=== PATIENT | male | born 1950 | race Hispanic/Latino ===

== ENCOUNTER 2017-12-24 11:07 | Observation (INO) | payer MEDICARE ==
[~2017-12-24] VITALS: Ht 170.2 cm; Wt 70.1 kg
[~2017-12-24 11:07] MED LIST: ACET1TAB25 PO; AEC81 PO; AMLO1CAP11 PO; BIMA12.5OS OD; BRIM15OS OD; CANA300T PO; CILO100T PO; CLOP75TA32 PO; DOXY100C PO; DUTA1CPM PO; ESOM40CA PO; FURO20TA4 PO; HUM10VIA6 SQ; LINA1TAB PO; NAPR-1023 PO; PRAV20TA4 PO
[2017-12-24 11:47] LABS: BASOPHILS % (AUTO) 3.7 % (0.0-5.0); EOSINOPHILS % (AUTO) 4.2 % (0.0-8.0); HEMATOCRIT 32.2 % (42-54); LYMPHOCYTES % (AUTO) 16.9 % (21.0-51.0); MEAN CORPUSCULAR HEMOGLOBIN 30.3 pg (27.0-33.0); MEAN CORPUSCULAR HGB CONC 35.2 g/dL (32.0-36.0); MONOCYTES % (AUTO) 6.7 % (3.0-13.0); NEUTROPHILS % (AUTO) 68.5 % (40.0-77.0); PLATELET COUNT (AUTO) 232 K/uL (130-400); RED BLOOD CELL COUNT(AUTO) 3.75 MIL/uL (4.50-6.20)
[2017-12-24 12:05] LABS: CREATININE 2.3 mg/dL (0.5-1.5); POTASSIUM 4.1 mmol/L (3.5-5.1)
[2017-12-24 12:15] LABS: INR 0.96 (0.85-1.15); PARTIAL THROMBOPLASTIN TIME 25.9 SEC (26.3-35.5); PROTHROMBIN TIME 10.1 SEC (9.6-11.6)
[2017-12-24 12:21] LABS: ALBUMIN 2.7 g/dL (3.5-5.0); BILIRUBIN,TOTAL 0.3 mg/dL (0.2-1.0); CREATINE KINASE MB 0.7 ng/mL (0.5-3.6); TOTAL PROTEIN, SERUM 6.6 g/dL (6.0-8.3)
[2017-12-24] MEDS ORDERED: ASPIRIN 325 MG TABLET ONE (12:48)
[2017-12-24] MEDS ORDERED: NITROGLYCERIN 1GM/1 INCH PACKET TD ONE (12:48)
[2017-12-24] MEDS ORDERED: INSULIN HUMULIN R 100 UNIT/ML 3ML ONE (18:56)
[2017-12-24 20:00] VITALS: BP 172/81
[2017-12-24 23:59] LABS: CREATINE KINASE MB 0.5 ng/mL (0.5-3.6); CREATINE KINASE, TOTAL 101 U/L (21-232); MYOGLOBIN 84 ng/mL (10-92); TROPONIN I < 0.04 ng/mL (0.00-0.06)
[2017-12-25] VITALS: BP 158/82
[2017-12-25] MEDS ORDERED: GLUCAGON 1MG KIT 1 MG ML IM PRN (02:15)
[2017-12-25] MEDS ORDERED: ACETAMINOPHEN 325 MG TAB PO PRN (02:15)
[2017-12-25] MEDS ORDERED: DEXTROSE 50%-WATER 50 ML DISP.SYRIN IV PRN (02:15)
[2017-12-25] MEDS: ENOXAPARIN SODIUM 80 MG/0.8 ML SQ SCH ×2 (02:30→14:05)
[2017-12-25 04:00] VITALS: BP 160/82
[2017-12-25] MEDS: INSULIN R PO SS1 SQ SCH ×2 (06:27→12:21)
[2017-12-25] MEDS ORDERED: ACETAMINOPHEN-CODEINE 300/30MG TAB PO PRN (08:00)
[2017-12-25 08:40] VITALS: BP 177/97
[2017-12-25] MEDS ORDERED: CLOPIDOGREL BISULFATE 75 MG TAB PO SCH (09:00)
[2017-12-25] MEDS ORDERED: AMLODIPINE-BENAZEPRIL 5-10 MG PO SCH (09:00)
[2017-12-25] MEDS ORDERED: BRIMONIDINE TARTRATE 0.2% 5 ML BOTTLE OD SCH (09:00)
[2017-12-25] MEDS ORDERED: ASPIRIN 81 MG EC TAB PO SCH (09:00)
[2017-12-25] MEDS ORDERED: PANTOPRAZOLE SODIUM 40 MG TABLET.DR PO SCH (09:00)
[2017-12-25] MEDS ORDERED: CILOSTAZOL 100 MG TAB PO SCH (09:00)
[2017-12-25 11:00] VITALS: BP 136/76
[2017-12-25 15:44] VITALS: BP 162/85
[2017-12-25] MEDS ORDERED: LATANOPROST 2.5 ML DROPS OD SCH (21:00)
[2017-12-25] MEDS ORDERED: ATORVASTATIN CALCIUM 10 MG TABLET PO SCH (21:00)
== END 2017-12-25 16:15 | disposition home or self-care (01) ==
LOC: EDH 11:07 → EDHIP 14:00 → 3BH 20:04
PROVIDERS: ADMIT Internal Medicine Nephrology; ATTEND Internal Medicine Nephrology
DX: R07.89 Other chest pain (principal); I12.0 Hypertensive chronic kidney disease with stage 5 chronic kidney disease or end stage renal disease; N18.6 End stage renal disease; K21.9 Gastro-esophageal reflux disease without esophagitis; E11.51 Type 2 diabetes mellitus with diabetic peripheral angiopathy without gangrene; E11.22 Type 2 diabetes mellitus with diabetic chronic kidney disease; E78.5 Hyperlipidemia, unspecified; Z86.73 Personal history of transient ischemic attack (TIA), and cerebral infarction without residual deficits; Z99.2 Dependence on renal dialysis; Z83.3 Family history of diabetes mellitus; Z82.49 Family history of ischemic heart disease and other diseases of the circulatory system
CPT/HCPCS: 36415; 71046; 80053; 82550 ×2; 82553 ×2; 82948 ×4; 83874; 84484 ×3; 85025; 85610; 85730; 93005; 96372; 99285; G0378 ×26; J1650; J1815 ×2

== ENCOUNTER 2019-02-19 16:00 | Inpatient (IN) | payer MEDICARE ==
[~2019-02-19] VITALS: Ht 162.6 cm; Wt 75.1 kg
[~2019-02-19 16:00] MED LIST changes: -ACET1TAB25 PO; -AEC81 PO; -BRIM15OS OD; -CANA300T PO; -CILO100T PO; -DOXY100C PO; -DUTA1CPM PO; -ESOM40CA PO; -FURO20TA4 PO; -HUM10VIA6 SQ; -LINA1TAB PO; -NAPR-1023 PO; -PRAV20TA4 PO
[2019-02-19 17:09] LABS: BASOPHILS % (AUTO) 1.9 % (0.0-5.0); EOSINOPHILS % (AUTO) 1.7 % (0.0-8.0); HEMATOCRIT 33.1 % (42-54); LYMPHOCYTES % (AUTO) 15.5 % (21.0-51.0); MEAN CORPUSCULAR HEMOGLOBIN 30.3 pg (27.0-33.0); MEAN CORPUSCULAR HGB CONC 34.1 g/dL (32.0-36.0); MONOCYTES % (AUTO) 7.8 % (3.0-13.0); NEUTROPHILS % (AUTO) 73.1 % (40.0-77.0); PLATELET COUNT (AUTO) 200 K/uL (130-400); RED BLOOD CELL COUNT(AUTO) 3.71 MIL/uL (4.50-6.20); RED CELL DISTRIBUTION WIDTH 13.2 % (11.0-15.5); WHITE BLOOD COUNT (AUTO) 7.3 K/uL (4.8-10.8)
[2019-02-19 17:12] VITALS: BP 193/85
[2019-02-19 17:15] LABS: APPEARANCE,URINE Clear (CLEAR); BILIRUBIN,URINE Negative (NEGATIVE); COLOR,URINE Yellow (YELLOW); GLUCOSE, URINE (UA) TRACE mg/dL (NEGATIVE); KETONES,URINE Negative (NEGATIVE); LEUKOCYTE ESTERASE ,URINE Negative (NEGATIVE); NITRATE,URINE Negative (NEGATIVE); OCCULT BLOOD,URINE Trace (NEGATIVE); PROTEIN,URINE >=1000 mg/dL (NEGATIVE)
[2019-02-19 17:23] LABS: CREATININE 2.8 mg/dL (0.5-1.5); POTASSIUM 4.1 mmol/L (3.5-5.1)
[2019-02-19 17:24] LABS: WBC,URINE 0-1 /HPF (0-1)
[2019-02-19 17:25] LABS: BACTERIA,URINE Few /HPF (None Seen); SQUAMOUS EPITHELIAL CELL,UR None Seen /HPF (0-2)
[2019-02-19 17:26] LABS: INR 0.99 (0.85-1.15); PARTIAL THROMBOPLASTIN TIME 27.5 SEC (26.3-35.5); PROTHROMBIN TIME 10.4 SEC (9.6-11.6)
[2019-02-19] MEDS ORDERED: TAMS-1 PO (17:47)
[2019-02-19] MEDS ORDERED: PREG50 PO (17:47)
[2019-02-19] MEDS ORDERED: PRAV40TA3 PO (17:47)
[2019-02-19] MEDS ORDERED: HYDR-4154 PO (17:47)
[2019-02-19] MEDS ORDERED: OMEP40CA37 PO (17:47)
[2019-02-19] MEDS ORDERED: KETO5DRO39 OU (17:47)
[2019-02-19] MEDS ORDERED: FURO40TA5 PO (17:47)
[2019-02-19] MEDS ORDERED: NETA2.5D OP (17:47)
[2019-02-19] MEDS ORDERED: METR-172 PO (17:47)
[2019-02-19] MEDS ORDERED: INSU100C14 SQ ×2 (17:50)
--- NOTE | 2019-02-19 18:05 | NUR ---
LABS ALL ABNORMAL LABS REPORTED TO DR. MUNOZ, PER DR. Bret MUNOZ PATIENT TO GO TO HIS SCHEDULE HEMODILAYSIS FRIDAY AT 8 AM MAY HAVE FULL EARLY BREAKFAST , THEN AFTER HEMODIALYSIS COME TO HOSPITAL FOR SURGERY . PATIENT WAS CALLED AND INFORMED ABOUT THIS , HE VERBALIZED UNDERSTANDING.
[2019-02-22] VITALS (22 sets, daily range): BP systolic 98–144; BP diastolic 53–69
[2019-02-22] MEDS ORDERED: SODIUM CHLORIDE 0.9% 1000ML 1,000 ML IV ONE (12:13)
[2019-02-22] MEDS: CEFAZOLIN SODIUM 1 GM VIAL IVP SCH ×3 (13:00→21:41)
[2019-02-22] MEDS ORDERED: LIDOCAINE PF 2% 5ML ABBOJECT ONE (14:25)
[2019-02-22] MEDS ORDERED: DEXAMETHASONE SOD PHOSPHATE 10MG/ML 1ML VIAL ONE (14:25)
[2019-02-22] MEDS ORDERED: SUCCINYLCHOLINE 200MG/10ML SYR ONE (14:25)
[2019-02-22] MEDS ORDERED: GLYCOPYRROLATE 1 MG/5 ML SYRINGE ONE (14:25)
[2019-02-22] MEDS ORDERED: ONDANSETRON HCL 4 MG/2 ML VIAL ONE (14:25)
[2019-02-22] MEDS ORDERED: ROCURONIUM 10MG/1ML SYR 10 MG/ML ML ONE (14:26)
[2019-02-22] MEDS ORDERED: MIDAZOLAM HCL 1 MG/ML 2ML VIAL ONE (14:26)
[2019-02-22] MEDS ORDERED: NEOSTIGMINE 5MG/5ML SYR IV ONE (14:26)
[2019-02-22] MEDS ORDERED: PROPOFOL 10 MG/ML 20ML VIAL IV ONE (14:26)
[2019-02-22] MEDS ORDERED: ROPIVACAINE 0.5% 5MG/ML 30ML IJ ONE (14:27)
[2019-02-22] MEDS ORDERED: FENTANYL CITRATE PF 50 MCG/1 ML 2ML VIAL ONE (14:28)
[2019-02-22] MEDS ORDERED: CEFAZOLIN SODIUM 1 GM VIAL ONE ×2 (15:11→15:12)
[2019-02-22] MEDS ORDERED: EPHEDRINE SULFATE 50 MG/ML AMPULE ONE (15:32)
[2019-02-22] MEDS ORDERED: SODIUM CHLORIDE 0.9% 1000ML 1,000 ML IV SCH (17:10)
[2019-02-22] MEDS ORDERED: LIDOCAINE HCL-MPF 1% 2ML VIAL IVP PRN (17:15)
[2019-02-22] MEDS ORDERED: POTASSIUM CHLORIDE 20 MEQ ERTAB PO PRN (17:15)
[2019-02-22] MEDS ORDERED: DiphenhydrAMINE HCL 50 MG/ML VIAL IVP PRN (17:15)
[2019-02-22] MEDS ORDERED: FE FUMARATE/FA/MV, MIN COMB#15 1 TAB PO PRN (17:15)
[2019-02-22] MEDS ORDERED: POTASSIUM CHLORIDE 10% ELIXIR 20 MEQ/15 ML UDCUP PO PRN (17:15)
[2019-02-22] MEDS ORDERED: OXYCODONE HCL 5 MG TAB PO PRN (17:15)
[2019-02-22] MEDS ORDERED: ONDANSETRON HCL 4 MG/2 ML VIAL IVP PRN (17:15)
[2019-02-22] MEDS: ACETAMINOPHEN EXTRA STRENGTH 500 MG TABLET PO SCH (17:15)
[2019-02-22] MEDS ORDERED: TRAMADOL HCL 50 MG TABLET PO PRN (17:15)
[2019-02-22] MEDS ORDERED: TEMAZEPAM 15 MG CAPSULE PO PRN (17:15)
[2019-02-22] MEDS ORDERED: POTASSIUM CHLORIDE 20MEQ/100ML 100 ML IV PRN (17:15)
[2019-02-22] MEDS ORDERED: MEPERIDINE-PF 25 MG/ML SYG ONE (18:06)
--- NOTE | 2019-02-22 18:50 | NUR ---
POST SURGERY PATIENT RECEIVED FROM PACU VIA HOSPITAL BED. FAMILY IS PRESENT IN ROOM. ALL HAVE BEEN ORIENTED TO ROOM AND USE OF CALL LIGHT. DRESSING TO RIGHT SHOULDER IS DRY AND INTACT WITH HEMOVAC PRESENT. POST OP VITAL SIGNS HAVE BEEN INITIATED. BED IS IN LOWEST POSITION AND LOCKED WITH ALL PERSONAL BELONGINGS WITHIN REACH. WILL CONTINUE TO MONITOR.
[2019-02-22] MEDS: PREGABALIN 25 MG CAP PO SCH (20:42)
[2019-02-22] MEDS: INSULIN HUMULIN R 100 UNIT/ML 3ML SQ SCH (21:29)
[2019-02-22] MEDS ORDERED: FUROSEMIDE 40 MG TABLET PO SCH (22:00)
[2019-02-23] MEDS: ACETAMINOPHEN EXTRA STRENGTH 500 MG TABLET PO SCH ×3 (01:10→16:56)
[2019-02-23 03:05] VITALS: BP 107/72
[2019-02-23 04:25] LABS: HEMATOCRIT 28.1 % (42-54); MEAN CORPUSCULAR HEMOGLOBIN 31.2 pg (27.0-33.0); MEAN CORPUSCULAR HGB CONC 34.9 g/dL (32.0-36.0); MEAN CORPUSCULAR VOLUME 89.1 fL (79-99); PLATELET COUNT (AUTO) 170 K/uL (130-400); RED BLOOD CELL COUNT(AUTO) 3.16 MIL/uL (4.50-6.20); RED CELL DISTRIBUTION WIDTH 13.3 % (11.0-15.5); WHITE BLOOD COUNT (AUTO) 12.5 K/uL (4.8-10.8)
[2019-02-23 04:43] LABS: CREATININE 2.9 mg/dL (0.5-1.5); POTASSIUM 4.4 mmol/L (3.5-5.1)
[2019-02-23] MEDS: CEFAZOLIN SODIUM 1 GM VIAL IVP SCH (06:01)
[2019-02-23] MEDS: CALCIUM CARBONATE 500 MG TABLET PO PRN ×2 (06:01→09:21)
--- NOTE | 2019-02-23 06:20 | NUR ---
NEPHROLOGY DR. DEXTER IN TO SEE PATIENT. NEW ORDERS RECEIVED.
[2019-02-23] MEDS: INSULIN HUMULIN R 100 UNIT/ML 3ML SQ SCH ×4 (06:35→21:00)
[2019-02-23 08:05] VITALS: BP 124/66
[2019-02-23] MEDS ORDERED: ENOXAPARIN SODIUM 30 MG/0.3 ML SQ SCH (09:00)
[2019-02-23] MEDS: PREGABALIN 25 MG CAP PO SCH ×4 (09:00→20:29)
[2019-02-23] MEDS: KETOROLAC TROMETHAMINE OPTH 0.5% 5ML DROPS OU SCH ×2 (09:19→20:25)
[2019-02-23] MEDS: AMLODIPINE-BENAZEPRIL 5-10 MG PO SCH (09:20)
[2019-02-23] MEDS: PANTOPRAZOLE SODIUM 40 MG TABLET.DR PO SCH (09:20)
[2019-02-23] MEDS: ATORVASTATIN CALCIUM 10 MG TABLET PO SCH (09:20)
[2019-02-23] MEDS: HYDRALAZINE HCL 25 MG TABLET PO SCH ×3 (09:20→20:24)
[2019-02-23] MEDS: TAMSULOSIN HCL 0.4 MG CAP.ER.24H PO SCH (09:20)
[2019-02-23] MEDS: CLOPIDOGREL BISULFATE 75 MG TAB PO SCH (09:20)
[2019-02-23] MEDS: POLYETHYLENE GLYCOL 3350 17 GM POWD.PACK PO SCH (09:21)
[2019-02-23] MEDS: METRONIDAZOLE 500 MG TABLET PO SCH ×3 (09:21→20:24)
[2019-02-23 11:54] VITALS: BP 128/67
[2019-02-23 16:38] VITALS: BP 124/73
--- NOTE | 2019-02-23 17:00 | NUR ---
MARIO MEDRANO NOTES PT SEEN S/P SHOULDER SURGERY, SPOUSE AND PROVIDER AT BEDSIDE, AAOX3, MEGANEAKING, LIVES WITH SPOUSE WHO STATES WILL PROVIDE TRANSPORT HOME; PT HAS HD MWF, WILL BE DISCHARGED FRIDAY P HD; ORDERS FOR HH DISCUSSED; PT HAS CURRENT HOME HEALTH ; HOME HEALTH CHECK' VERIFIED SERVICES WITH AGENCY, ANAYA SIGNED, WILL FAX ALLL ORDERS IN AM Addendum: 02/25/19 at 0748 by MARY BURGESS RN CM Amended: Links added.
[2019-02-23] MEDS: OXYCODONE HCL 5 MG TAB PO PRN ×2 (17:51→22:01)
[2019-02-23 20:00] VITALS: BP 109/73
[2019-02-23] MEDS ORDERED: LATANOPROST 2.5 ML DROPS OD SCH (21:00)
[2019-02-23] MEDS ORDERED: RHOPRESSA OP SCH (21:00)
[2019-02-23 23:58] VITALS: BP 122/51
[2019-02-24] MEDS: ACETAMINOPHEN EXTRA STRENGTH 500 MG TABLET PO SCH ×2 (00:18→08:54)
[2019-02-24 04:06] VITALS: BP 131/52
[2019-02-24] MEDS: INSULIN HUMULIN R 100 UNIT/ML 3ML SQ SCH ×2 (06:20→11:30)
[2019-02-24] MEDS: OXYCODONE HCL 5 MG TAB PO PRN (06:37)
[2019-02-24 08:10] VITALS: BP 118/43
[2019-02-24] MEDS: KETOROLAC TROMETHAMINE OPTH 0.5% 5ML DROPS OU SCH (08:49)
[2019-02-24] MEDS: AMLODIPINE-BENAZEPRIL 5-10 MG PO SCH (08:51)
[2019-02-24] MEDS: HYDRALAZINE HCL 25 MG TABLET PO SCH ×2 (08:51→14:00)
[2019-02-24] MEDS: METRONIDAZOLE 500 MG TABLET PO SCH ×2 (08:53→14:24)
[2019-02-24] MEDS: ATORVASTATIN CALCIUM 10 MG TABLET PO SCH (08:53)
[2019-02-24] MEDS: PREGABALIN 25 MG CAP PO SCH ×2 (08:53→08:54)
[2019-02-24] MEDS: TAMSULOSIN HCL 0.4 MG CAP.ER.24H PO SCH (08:53)
[2019-02-24] MEDS: PANTOPRAZOLE SODIUM 40 MG TABLET.DR PO SCH (08:54)
[2019-02-24] MEDS: POLYETHYLENE GLYCOL 3350 17 GM POWD.PACK PO SCH (08:54)
[2019-02-24] MEDS: CLOPIDOGREL BISULFATE 75 MG TAB PO SCH (09:00)
[2019-02-24] MEDS ORDERED: NITROGLYCERIN 0.4 MG SL TAB SL PRN (09:15)
[2019-02-24] MEDS ORDERED: ACETAMINOPHEN 325 MG TAB PO PRN (09:15)
[2019-02-24] MEDS ORDERED: SODIUM CHLORIDE 0.9% 1000ML 1,000 ML IV PRN (09:15)
[2019-02-24] MEDS ORDERED: 0.9% SODIUM CHLORIDE 1000 ML IV BAG IV PRN (09:15)
[2019-02-24] MEDS ORDERED: HEPARIN SODIUM 5000UNIT/ML 1ML VIAL IJ PRN ×2 (09:15)
[2019-02-24] MEDS ORDERED: LIDOCAINE HCL-MPF 1% 2ML VIAL IJ PRN (09:15)
[2019-02-24] MEDS ORDERED: HYDR-4457 PO (11:07)
[2019-02-24 11:19] VITALS: BP 90/55
--- NOTE | 2019-02-24 15:20 | NUR ---
INSTRUCTIONS DISCHARGE INSTRUCTIONS GIVEN TO PATIENT USING TEACH BACK. FAMILY PRESENT AND ACKNOWLEDGES ALL INSTRUCTIONS. F/U APPOINTMENT MADE. NEW PRESCRIPTION PLACED IN PACKET ALONG WITH ALL PRINTED INFORMATION AND MD INSTRUCTIONS. DRESSING CHANGED AND HEMOVAC REMOVED PER MD INSTRUCTIONS.
[2019-02-25] MEDS ORDERED: BISACODYL 10 MG SUPP.RECT RC PRN (17:15)
== END 2019-02-24 17:04 | disposition home health service (06) | DRG 483 ==
LOC: DAHIP 02-22 11:45 → EDSTATUS 02-22 16:00 → 4AH 02-22 18:26
PROVIDERS: ADMIT Internal Medicine Nephrology; ATTEND Orthopaedic Surgery
PROC: 0RRJ00Z Replacement of Right Shoulder Joint with Reverse Ball and Socket Synthetic Substitute, Open Approach (ICD-10-PCS; principal; 2019-02-22 15:30)
PROC: 5A1D70Z Performance of Urinary Filtration, Intermittent, Less than 6 Hours Per Day (ICD-10-PCS; 2019-02-24)
DX: M75.101 Unspecified rotator cuff tear or rupture of right shoulder, not specified as traumatic (principal); N18.6 End stage renal disease; I12.0 Hypertensive chronic kidney disease with stage 5 chronic kidney disease or end stage renal disease; I69.354 Hemiplegia and hemiparesis following cerebral infarction affecting left non-dominant side; E11.22 Type 2 diabetes mellitus with diabetic chronic kidney disease; D63.1 Anemia in chronic kidney disease; E11.51 Type 2 diabetes mellitus with diabetic peripheral angiopathy without gangrene; F17.200 Nicotine dependence, unspecified, uncomplicated; K21.9 Gastro-esophageal reflux disease without esophagitis; M12.811 Other specific arthropathies, not elsewhere classified, right shoulder; G89.29 Other chronic pain; E66.9 Obesity, unspecified; Z68.28 Body mass index [BMI] 28.0-28.9, adult; Z99.2 Dependence on renal dialysis; Z82.49 Family history of ischemic heart disease and other diseases of the circulatory system; Z83.3 Family history of diabetes mellitus; Z95.828 Presence of other vascular implants and grafts
CPT/HCPCS: 36415; 73020; 80048; 81001; 82948; 84132; 85025; 85027; 85610; 85730; 90935; A4218; A4565; G0378; J0330; J0690; J1100; J1650; J1815; J2001; J2175; J2250; J2405; J2704; J2710; J2795; J3010; J3490; J7030

== ENCOUNTER 2020-06-28 21:44 | Observation (INO) | payer MEDICARE ==
[~2020-06-28] VITALS: Ht 170.2 cm; Wt 68.2 kg
[~2020-06-28 21:44] MED LIST changes: +AMLO-73 PO; -AMLO1CAP11 PO; +FURO40TA5 PO; +HYDR-4154 PO; +HYDR-4457 PO; +INSU100C14 SQ; +KETO5DRO39 OU; +METR-172 PO; +NETA2.5D OP; +OMEP40CA13 PO; +PRAV40TA3 PO; +PREG50 PO; +TAMS-1 PO
[2020-06-28] MEDS ORDERED: ACETAMINOPHEN 325 MG TAB ONE (22:09)
[2020-06-28 22:21] LABS: BASOPHILS % (AUTO) 1.4 % (0.0-5.0); EOSINOPHILS % (AUTO) 0.5 % (0.0-8.0); HEMATOCRIT 24.2 % (42-54); LYMPHOCYTES % (AUTO) 9.5 % (21.0-51.0); MEAN CORPUSCULAR HEMOGLOBIN 28.8 pg (27.0-33.0); MEAN CORPUSCULAR HGB CONC 31.8 g/dL (32.0-36.0); MEAN CORPUSCULAR VOLUME 90.6 fL (79-99); MONOCYTES % (AUTO) 5.7 % (3.0-13.0); NEUTROPHILS % (AUTO) 82.5 % (40.0-77.0); PLATELET COUNT (AUTO) 242 K/uL (130-400); RED BLOOD CELL COUNT(AUTO) 2.67 MIL/uL (4.50-6.20); RED CELL DISTRIBUTION WIDTH 14.6 % (11.0-15.5); WHITE BLOOD COUNT (AUTO) 7.7 K/uL (4.8-10.8)
[2020-06-28 22:31] LABS: CREATININE 2.3 mg/dL (0.5-1.5); POTASSIUM 3.3 mmol/L (3.5-5.1)
[2020-06-28 22:32] LABS: INR 1.04 (0.85-1.15); PARTIAL THROMBOPLASTIN TIME 31.1 SEC (26.3-35.5); PROTHROMBIN TIME 11.2 SEC (9.6-11.6)
[2020-06-28 22:36] LABS: ALBUMIN 2.8 g/dL (3.5-5.0); BILIRUBIN,TOTAL 0.5 mg/dL (0.2-1.0); TOTAL PROTEIN, SERUM 7.1 g/dL (6.0-8.3)
[2020-06-28 23:37] LABS: ERYTHROCYTE SEDIMENTATION RATE 73 MM/HR (0-20)
[2020-06-29] MEDS ORDERED: METHYLPREDNISOLONE SOD SUCC 125MG/2ML VIAL ONE (00:30)
[2020-06-29] MEDS ORDERED: DEXTROSE 50%-WATER 50 ML DISP.SYRIN IV PRN (04:30)
[2020-06-29] MEDS ORDERED: ACETAMINOPHEN 325 MG TAB PO PRN (04:30)
[2020-06-29] MEDS ORDERED: ONDANSETRON ODT 4 MG TAB PO PRN (04:30)
[2020-06-29] MEDS ORDERED: GLUCAGON 1MG KIT 1 MG ML IM PRN (04:30)
[2020-06-29 06:21] LABS: BASOPHILS % (AUTO) 1.2 % (0.0-5.0); EOSINOPHILS % (AUTO) 0.1 % (0.0-8.0); HEMATOCRIT 24.9 % (42-54); LYMPHOCYTES % (AUTO) 7.9 % (21.0-51.0); MEAN CORPUSCULAR HGB CONC 31.7 g/dL (32.0-36.0); MEAN CORPUSCULAR VOLUME 91.5 fL (79-99); MONOCYTES % (AUTO) 1.2 % (3.0-13.0); NEUTROPHILS % (AUTO) 89.3 % (40.0-77.0); PLATELET COUNT (AUTO) 236 K/uL (130-400); RED BLOOD CELL COUNT(AUTO) 2.72 MIL/uL (4.50-6.20); RED CELL DISTRIBUTION WIDTH 14.6 % (11.0-15.5); WHITE BLOOD COUNT (AUTO) 7.3 K/uL (4.8-10.8)
[2020-06-29 06:29] LABS: CREATININE 2.6 mg/dL (0.5-1.5); MAGNESIUM 1.8 mg/dL (1.80-2.40); POTASSIUM 3.4 mmol/L (3.5-5.1)
[2020-06-29] MEDS: INSULIN R PO SS1 SQ SCH ×2 (07:30→21:00)
[2020-06-29] MEDS ORDERED: INSULIN HUMULIN R 100 UNIT/ML 3ML ONE ×2 (08:30→12:44)
[2020-06-29 20:45] VITALS: BP 90/39
[2020-06-29 23:37] VITALS: BP 103/67
[2020-06-30] MEDS ORDERED: AEC81 PO (02:02)
[2020-06-30] MEDS ORDERED: PREG100C55 PO (02:02)
[2020-06-30] MEDS ORDERED: AMLO1CAP5 PO (02:09)
[2020-06-30] MEDS ORDERED: FURO40TA5 PO (02:09)
[2020-06-30] MEDS ORDERED: AMLO-73 PO (02:09)
[2020-06-30 04:38] VITALS: BP 105/93
[2020-06-30 04:46] LABS: HEMATOCRIT 25.5 % (42-54); MEAN CORPUSCULAR HEMOGLOBIN 28.5 pg (27.0-33.0); MEAN CORPUSCULAR HGB CONC 31.4 g/dL (32.0-36.0); MEAN CORPUSCULAR VOLUME 90.7 fL (79-99); RED BLOOD CELL COUNT(AUTO) 2.81 MIL/uL (4.50-6.20); RED CELL DISTRIBUTION WIDTH 14.3 % (11.0-15.5); WHITE BLOOD COUNT (AUTO) 8.5 K/uL (4.8-10.8)
[2020-06-30 05:23] LABS: CREATININE 3.3 mg/dL (0.5-1.5); POTASSIUM 3.1 mmol/L (3.5-5.1)
[2020-06-30] MEDS: INSULIN R PO SS1 SQ SCH ×2 (06:48→11:30)
[2020-06-30 08:00] VITALS: BP 131/77
[2020-06-30 12:00] VITALS: BP 123/78
[2020-06-30 16:00] VITALS: BP 121/69
--- NOTE | 2020-06-30 20:20 | NUR ---
PER MD ORDERS DISCHARGED PT HOME. REMOVED TELE AND PIV, TIP INTACT. DISCHARGE INSTRUCTIONS GIVEN TO PT AND SON (HORACIO) BY PHONE. INSTRUCTED PT TO GO TO [facility] FOR DIALYSIS ORDERED BY DR THOMAS TOMORROW AT 1:45 PM. BOTH STATED UNDERSTANDING. PT WAS ALSO INSTRUCTED TO FOLLOW UP WITH DR FLOYD OUT PT IN 1 WEEK AND TO CALL TO MAKE AN APPT. STATED UNDERSTANDING. PT FAMILY WAS WAITING DOWNSTAIRS, JARED FURNACE ROASTER WHEELED HIM DOWN.
== END 2020-06-30 20:35 | disposition home or self-care (01) ==
LOC: EDH 21:44 → UNDOADMOB 06-29 00:10 → EDHIP 06-29 00:10 → INTOOBSV 06-29 00:10 → OBSVTOIN 06-29 16:15 → UNDOADMOB 06-29 16:15 → INTOOBSV 06-29 16:15 → EDHIP 06-29 16:15 → 3DH 06-29 20:15
PROVIDERS: ADMIT Internal Medicine Infectious Disease; ATTEND Internal Medicine Infectious Disease
DX: R51 Headache (principal); E11.22 Type 2 diabetes mellitus with diabetic chronic kidney disease; I12.0 Hypertensive chronic kidney disease with stage 5 chronic kidney disease or end stage renal disease; E11.52 Type 2 diabetes mellitus with diabetic peripheral angiopathy with gangrene; N18.6 End stage renal disease; E87.6 Hypokalemia; D64.9 Anemia, unspecified; Z89.511 Acquired absence of right leg below knee; Z87.891 Personal history of nicotine dependence
CPT/HCPCS: 36415 ×3; 70450; 80048 ×2; 80053; 82948 ×8; 83735 ×2; 85025 ×2; 85027; 85610; 85651; 85730; 93005; 99285; G0378 ×25; J1815 ×2; J2930

== ENCOUNTER 2020-07-11 00:39 | Inpatient (IN) | payer MEDICARE ==
[~2020-07-11] VITALS: Ht 170.2 cm; Wt 78.5 kg
[2020-07-11] VITALS (23 sets, daily range): BP systolic 63–120; BP diastolic 33–69
[~2020-07-11 00:39] MED LIST changes: +AEC81 PO; -AMLO-73 PO; +AMLO1CAP5 PO; -BIMA12.5OS OD; -HYDR-4154 PO; -HYDR-4457 PO; -INSU100C14 SQ; -KETO5DRO39 OU; -METR-172 PO; -NETA2.5D OP; -OMEP40CA13 PO; -PRAV40TA3 PO; +PREG100C55 PO; -PREG50 PO
[2020-07-11] MEDS ORDERED: DEXTROSE 50%-WATER 50 ML DISP.SYRIN IV ONE (00:51)
[2020-07-11] MEDS ORDERED: GLUCAGON 1MG KIT 1 MG ML ONE (00:51)
[2020-07-11] MEDS ORDERED: DEXTROSE 5%-LACTATED RINGERS 1,000 ML IV ONE (01:04)
[2020-07-11 01:15] LABS: BASOPHILS % (AUTO) 0.8 % (0.0-5.0); EOSINOPHILS % (AUTO) 0.2 % (0.0-8.0); HEMATOCRIT 26.9 % (42-54); LYMPHOCYTES % (AUTO) 7.2 % (21.0-51.0); MEAN CORPUSCULAR HEMOGLOBIN 28.3 pg (27.0-33.0); MEAN CORPUSCULAR HGB CONC 31.2 g/dL (32.0-36.0); MEAN CORPUSCULAR VOLUME 90.6 fL (79-99); MONOCYTES % (AUTO) 4.1 % (3.0-13.0); NEUTROPHILS % (AUTO) 87.3 % (40.0-77.0); PLATELET COUNT (AUTO) 234 K/uL (130-400); RED BLOOD CELL COUNT(AUTO) 2.97 MIL/uL (4.50-6.20); RED CELL DISTRIBUTION WIDTH 14.8 % (11.0-15.5); WHITE BLOOD COUNT (AUTO) 11.4 K/uL (4.8-10.8)
[2020-07-11 01:31] LABS: ALANINE AMINOTRANSFERASE 54 U/L (12-78); ASPARTATE AMINOTRANSFERASE 39 U/L (10-37); BILIRUBIN,TOTAL 0.3 mg/dL (0.2-1.0); CARBON DIOXIDE 29 mmol/L (21-32); CHLORIDE 99 mmol/L (101-111); CREATINE KINASE, TOTAL 53 U/L (21-232); GLOMERULAR FILTR. RATE CALC 10 mL/min (>60); LIPASE 54 U/L (114-286); SODIUM SERUM 140 mmol/L (136-145); TOTAL PROTEIN, SERUM 7.1 g/dL (6.0-8.3); UREA NITROGEN, BLOOD 27 mg/dL (7-18)
[2020-07-11 01:36] LABS: GLUCOSE,RANDOM 47 mg/dL (70-105); POTASSIUM 2.4 mmol/L (3.5-5.1)
[2020-07-11 01:42] LABS: INR 1.18 (0.85-1.15); PARTIAL THROMBOPLASTIN TIME 30.1 SEC (26.3-35.5); PROTHROMBIN TIME 12.7 SEC (9.6-11.6)
[2020-07-11 01:46] LABS: ALCOHOL, BLOOD < 3 mg/dL (0-10)
[2020-07-11 01:50] LABS: ACETAMINOPHEN < 1 mcg/mL (10-29); SALICYLATE < 2.8 mg/dL (2.8-20.0)
[2020-07-11] MEDS ORDERED: POTASSIUM CHLORIDE 20MEQ/100ML 100 ML IV ONE (01:52)
[2020-07-11] MEDS ORDERED: LIDOCAINE HCL-MPF 1% 2ML VIAL ONE (01:53)
[2020-07-11 02:55] LABS: APPEARANCE,URINE Cloudy (CLEAR); BILIRUBIN,URINE Moderate (NEGATIVE); COLOR,URINE Dark Yellow (YELLOW); GLUCOSE, URINE (UA) Negative (NEGATIVE); KETONES,URINE Trace mg/dL (NEGATIVE); LEUKOCYTE ESTERASE ,URINE Trace (NEGATIVE); NITRATE,URINE Negative (NEGATIVE); OCCULT BLOOD,URINE Negative (NEGATIVE); PROTEIN,URINE 300 mg/dL (NEGATIVE)
[2020-07-11] MEDS ORDERED: ZOSYN 3.375GM+NS 50ML 50 ML IV ONE (02:59)
[2020-07-11 03:02] LABS: AMORPHOUS SEDIMENT,UR Moderate /LPF (None Seen); BACTERIA,URINE Rare /HPF (None Seen); RBC,URINE None Seen /HPF (0-1); SQUAMOUS EPITHELIAL CELL,UR Rare /HPF (0-2)
[2020-07-11 03:03] LABS: AMPHET/METH SCREEN,URINE NEGATIVE (NEGATIVE); BARBITURATE SCREEN, URINE NEGATIVE (NEGATIVE); BENZODIAZEPINES SCREEN,URINE NEGATIVE (NEGATIVE); CANNABINOID SCREEN,URINE NEGATIVE (NEGATIVE); COCAINE SCREEN,URINE NEGATIVE (NEGATIVE); OPIATE SCREEN,URINE NEGATIVE (NEGATIVE); PHENCYCLIDINE SCREEN,URINE NEGATIVE (NEGATIVE)
[2020-07-11] MEDS ORDERED: GLUCAGON 1MG KIT 1 MG ML IM PRN (05:15)
[2020-07-11] MEDS ORDERED: RENAL DOSE IV SCH (05:15)
[2020-07-11 05:40] LABS: HEMATOCRIT 27.2 % (42-54); MEAN CORPUSCULAR HGB CONC 31.6 g/dL (32.0-36.0); MEAN CORPUSCULAR VOLUME 91.6 fL (79-99); RED BLOOD CELL COUNT(AUTO) 2.97 MIL/uL (4.50-6.20); RED CELL DISTRIBUTION WIDTH 14.7 % (11.0-15.5); WHITE BLOOD COUNT (AUTO) 9.9 K/uL (4.8-10.8)
[2020-07-11] MEDS: METRONIDAZOLE 500MG/100ML BAG 100 ML IV SCH ×3 (05:52→20:40)
[2020-07-11 05:58] LABS: CREATININE 5.9 mg/dL (0.5-1.5); MAGNESIUM 2.2 mg/dL (1.80-2.40); POTASSIUM 3.5 mmol/L (3.5-5.1)
[2020-07-11] MEDS: ZOSYN 3.375GM+NS 50ML 50 ML IV SCH ×2 (07:01→17:16)
[2020-07-11] MEDS: FAMOTIDINE 20MG TAB 20 MG TAB PO SCH (07:49)
[2020-07-11] MEDS ORDERED: FUROSEMIDE 40 MG TABLET PO PRN (11:15)
[2020-07-11] MEDS ORDERED: [UNRECOGNIZED DRUG - CODE] IJ (11:33)
[2020-07-11] MEDS ORDERED: METR-172 PO (11:33)
--- NOTE | 2020-07-11 11:41 | NUR ---
VT PLAN PATIENT CONDITION GUARDED ND 3 87/54 HR 59. MARIO WILL CONTINUE FOLLOW. Addendum: 07/11/20 at 1142 by CHRIS WILLIAM RN CM Amended: Links added.
[2020-07-11] MEDS: DEXTROSE 50%-WATER 50 ML DISP.SYRIN IV PRN ×2 (13:17→22:17)
--- NOTE | 2020-07-11 15:09 | NUR ---
DR. HOLLINS WAS NOTIFIED ABOUT PATIENT REQUESTING SOMETHING FOR PAIN PRIOR TO REMOVING DELORES.
[2020-07-11] MEDS ORDERED: MORPHINE SULFATE 2 MG/ML 1ML SYG ONE (15:14)
[2020-07-11] MEDS ORDERED: MORPHINE SULFATE 2 MG/ML 1ML SYG IVP SCH (15:15)
[2020-07-11] MEDS: PREGABALIN 100 MG CAPSULE PO SCH (20:40)
[2020-07-12] VITALS (19 sets, daily range): BP systolic 67–135; BP diastolic 27–72
[2020-07-12 04:37] LABS: CREATININE 6.4 mg/dL (0.5-1.5); POTASSIUM 3.4 mmol/L (3.5-5.1)
--- NOTE | 2020-07-12 04:42 | NUR ---
[employer] Paged for patient blood pressure 62/36 Jordi LOPEZ advised nurse to administer ALBUMIN 25% 50cc and to start Levophed 4mg/250ml. Will continue to monitor patient.
[2020-07-12 05:01] LABS: BASOPHILS % (AUTO) 0.8 % (0.0-5.0); HEMATOCRIT 25.6 % (42-54); LYMPHOCYTES % (AUTO) 4.6 % (21.0-51.0); MEAN CORPUSCULAR HEMOGLOBIN 29.3 pg (27.0-33.0); MEAN CORPUSCULAR HGB CONC 32.4 g/dL (32.0-36.0); MEAN CORPUSCULAR VOLUME 90.5 fL (79-99); NEUTROPHILS % (AUTO) 89.2 % (40.0-77.0); PLATELET COUNT (AUTO) 202 K/uL (130-400); RED BLOOD CELL COUNT(AUTO) 2.83 MIL/uL (4.50-6.20); WHITE BLOOD COUNT (AUTO) 10.2 K/uL (4.8-10.8)
[2020-07-12] MEDS ORDERED: NOREPINEPHRINE 4MG/NS 250ML 250 ML IV ONE ×2 (05:03→13:26)
[2020-07-12] MEDS: ZOSYN 3.375GM+NS 50ML 50 ML IV SCH ×2 (05:51→19:19)
[2020-07-12] MEDS ORDERED: ALBUMIN (HUMAN) 25% 100 ML IV ONE (05:53)
[2020-07-12] MEDS: METRONIDAZOLE 500MG/100ML BAG 100 ML IV SCH ×3 (06:28→21:22)
[2020-07-12] MEDS: CLOPIDOGREL BISULFATE 75 MG TAB PO SCH (08:43)
[2020-07-12] MEDS: FAMOTIDINE 20MG TAB 20 MG TAB PO SCH (08:43)
[2020-07-12] MEDS: ASPIRIN 81 MG EC TAB PO SCH (08:43)
[2020-07-12] MEDS: MIDODRINE HCL 5 MG TABLET PO SCH ×3 (08:43→21:21)
[2020-07-12] MEDS: AMLODIPINE-BENAZEPRIL 5-10 MG PO SCH (08:47)
[2020-07-12] MEDS: TAMSULOSIN HCL 0.4 MG CAP.ER.24H PO SCH (08:48)
--- NOTE | 2020-07-12 10:43 | NUR ---
DC PLAN FROM LAST ADMISSION. PATIENT LIVES WITH SPOUSE. ILDA VERDUZCO, HOME HEALTH CHECK FOR HOME HEALTH. MARIO WILL CONTINUE TO FOLLOW. PLAN TO RETURN HOME. Addendum: 07/12/20 at 1045 by CHRIS WILLIAM RN CM Amended: Links added.
[2020-07-12] MEDS: PHARMACY COMMUNICATION MISC SCH ×2 (14:45→22:45)
[2020-07-12] MEDS: PREGABALIN 100 MG CAPSULE PO SCH (21:21)
[2020-07-12] MEDS: EPOETIN ALFA 10,000 UNIT/ML VIAL SQ SCH (21:22)
[2020-07-13] VITALS (25 sets, daily range): BP systolic 91–145; BP diastolic 32–79
[2020-07-13] MEDS ORDERED: NOREPINEPHRINE BITARTRATE 1 MG/1 ML ML IV ONE (01:35)
[2020-07-13] MEDS ORDERED: NOREPINEPHRINE 4MG/NS 250ML 250 ML IV ONE ×2 (01:38→02:23)
--- NOTE | 2020-07-13 03:19 | NUR ---
Due to continuous desat of oxygen while sleeping, RT communication entered to place patient on BiPAP.
[2020-07-13] MEDS: ZOSYN 3.375GM+NS 50ML 50 ML IV SCH ×2 (05:09→17:42)
[2020-07-13] MEDS: METRONIDAZOLE 500MG/100ML BAG 100 ML IV SCH ×3 (06:04→22:05)
[2020-07-13] MEDS: PHARMACY COMMUNICATION MISC SCH ×3 (06:05→21:14)
[2020-07-13] MEDS: CLOPIDOGREL BISULFATE 75 MG TAB PO SCH (08:26)
[2020-07-13] MEDS: ASPIRIN 81 MG EC TAB PO SCH (08:26)
[2020-07-13] MEDS: TAMSULOSIN HCL 0.4 MG CAP.ER.24H PO SCH (08:26)
[2020-07-13] MEDS: FAMOTIDINE 20MG TAB 20 MG TAB PO SCH (08:26)
[2020-07-13] MEDS: MIDODRINE HCL 5 MG TABLET PO SCH ×3 (08:28→22:05)
[2020-07-13] MEDS: AMLODIPINE-BENAZEPRIL 5-10 MG PO SCH (08:28)
[2020-07-13 10:13] LABS: HEMATOCRIT 27.9 % (42-54); MEAN CORPUSCULAR HEMOGLOBIN 28.8 pg (27.0-33.0); MEAN CORPUSCULAR HGB CONC 30.8 g/dL (32.0-36.0); MEAN CORPUSCULAR VOLUME 93.3 fL (79-99); PLATELET COUNT (AUTO) 236 K/uL (130-400); RED BLOOD CELL COUNT(AUTO) 2.99 MIL/uL (4.50-6.20); RED CELL DISTRIBUTION WIDTH 15.9 % (11.0-15.5); WHITE BLOOD COUNT (AUTO) 8.9 K/uL (4.8-10.8)
[2020-07-13 10:24] LABS: CREATININE 4.5 mg/dL (0.5-1.5); POTASSIUM 3.1 mmol/L (3.5-5.1)
[2020-07-13 10:29] LABS: BILIRUBIN,TOTAL 0.3 mg/dL (0.2-1.0); TOTAL PROTEIN, SERUM 6.7 g/dL (6.0-8.3)
[2020-07-13 13:12] LABS: HEPATITIS A ANTIBODY IGM Negative (Negative); HEPATITIS B CORE IGM Negative (Negative); HEPATITIS Bs ANTIGEN SCREEN P Negative (Negative)
[2020-07-13] MEDS: PREGABALIN 100 MG CAPSULE PO SCH (22:05)
[2020-07-14] VITALS (24 sets, daily range): BP systolic 100–168; BP diastolic 37–72
[2020-07-14 04:06] LABS: % IRON SATURATION 24.5 % (30-44)
[2020-07-14] MEDS ORDERED: NOREPINEPHRINE 4MG/NS 250ML 250 ML IV ONE (05:07)
[2020-07-14] MEDS: ZOSYN 3.375GM+NS 50ML 50 ML IV SCH ×2 (05:21→17:01)
[2020-07-14] MEDS: PHARMACY COMMUNICATION MISC SCH ×3 (05:21→22:09)
[2020-07-14] MEDS: METRONIDAZOLE 500MG/100ML BAG 100 ML IV SCH ×3 (05:21→22:09)
[2020-07-14] MEDS: FAMOTIDINE 20MG TAB 20 MG TAB PO SCH (07:49)
[2020-07-14] MEDS: CLOPIDOGREL BISULFATE 75 MG TAB PO SCH (07:49)
[2020-07-14] MEDS: AMLODIPINE-BENAZEPRIL 5-10 MG PO SCH (07:49)
[2020-07-14] MEDS: MIDODRINE HCL 5 MG TABLET PO SCH ×3 (07:49→22:09)
[2020-07-14] MEDS: ASPIRIN 81 MG EC TAB PO SCH (07:49)
[2020-07-14] MEDS: TAMSULOSIN HCL 0.4 MG CAP.ER.24H PO SCH (07:49)
[2020-07-14] MEDS ORDERED: NOREPINEPHRINE 4MG/NS 250ML 250 ML IV PRN (20:45)
[2020-07-14] MEDS: EPOETIN ALFA 10,000 UNIT/ML VIAL SQ SCH (21:04)
--- NOTE | 2020-07-14 21:07 | NUR ---
Dialysis Nurse completed treatment for patient. -2L removed. VSS. No sign of distress. Will continue to monitor.
[2020-07-14] MEDS: PREGABALIN 100 MG CAPSULE PO SCH (22:09)
[2020-07-15] VITALS (12 sets, daily range): BP systolic 101–179; BP diastolic 40–85
[2020-07-15] MEDS: METRONIDAZOLE 500MG/100ML BAG 100 ML IV SCH ×3 (05:42→20:21)
[2020-07-15] MEDS: PHARMACY COMMUNICATION MISC SCH ×3 (05:42→19:33)
[2020-07-15] MEDS: ZOSYN 3.375GM+NS 50ML 50 ML IV SCH ×2 (05:42→17:45)
[2020-07-15] MEDS: CLOPIDOGREL BISULFATE 75 MG TAB PO SCH (08:05)
[2020-07-15] MEDS: ASPIRIN 81 MG EC TAB PO SCH (08:05)
[2020-07-15] MEDS: FAMOTIDINE 20MG TAB 20 MG TAB PO SCH (08:05)
[2020-07-15] MEDS: TAMSULOSIN HCL 0.4 MG CAP.ER.24H PO SCH (08:05)
[2020-07-15] MEDS: MIDODRINE HCL 5 MG TABLET PO SCH ×3 (08:07→20:21)
[2020-07-15] MEDS: AMLODIPINE-BENAZEPRIL 5-10 MG PO SCH (09:00)
[2020-07-15 11:07] LABS: BASOPHILS % (AUTO) 0.8 % (0.0-5.0); EOSINOPHILS % (AUTO) 7.2 % (0.0-8.0); HEMATOCRIT 25.3 % (42-54); LYMPHOCYTES % (AUTO) 12.2 % (21.0-51.0); MEAN CORPUSCULAR HEMOGLOBIN 28.5 pg (27.0-33.0); MEAN CORPUSCULAR HGB CONC 30.4 g/dL (32.0-36.0); MEAN CORPUSCULAR VOLUME 93.7 fL (79-99); MONOCYTES % (AUTO) 7.2 % (3.0-13.0); NEUTROPHILS % (AUTO) 72.2 % (40.0-77.0); PLATELET COUNT (AUTO) 203 K/uL (130-400); RED CELL DISTRIBUTION WIDTH 15.6 % (11.0-15.5); WHITE BLOOD COUNT (AUTO) 7.5 K/uL (4.8-10.8)
[2020-07-15 11:41] LABS: CREATININE 4.1 mg/dL (0.5-1.5); MAGNESIUM 1.8 mg/dL (1.80-2.40); POTASSIUM 3.4 mmol/L (3.5-5.1)
--- NOTE | 2020-07-15 19:18 | NUR ---
Received pt to christine, alert and oriented. Vietnamese speaking. 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 Pt was given bed bath upon arrival to unit. O2 at 3L in place. Food tray given. Refused meal but consumed jello and tea without difficulty.
[2020-07-15] MEDS: PREGABALIN 100 MG CAPSULE PO SCH (20:20)
[2020-07-16] VITALS (7 sets, daily range): BP systolic 95–175; BP diastolic 49–93
--- NOTE | 2020-07-16 04:28 | NUR ---
received report from synagogue nurse, assumed care, shift assessment done, timed medication given , see emar, pt is aox4, had a bowel movement using a bedpan, pt stump is open to air, no drainage noted, 24 cc done. outcome criteria done, safety maintained, bed alarm on.
[2020-07-16] MEDS: ZOSYN 3.375GM+NS 50ML 50 ML IV SCH ×2 (05:45→18:11)
[2020-07-16] MEDS: METRONIDAZOLE 500MG/100ML BAG 100 ML IV SCH ×3 (05:46→21:47)
[2020-07-16] MEDS: PHARMACY COMMUNICATION MISC SCH ×3 (05:46→20:49)
[2020-07-16 07:13] LABS: % IRON SATURATION 41.7 % (30-44)
[2020-07-16] MEDS: ASPIRIN 81 MG EC TAB PO SCH (08:55)
[2020-07-16] MEDS: TAMSULOSIN HCL 0.4 MG CAP.ER.24H PO SCH (08:55)
[2020-07-16] MEDS: CLOPIDOGREL BISULFATE 75 MG TAB PO SCH (08:55)
[2020-07-16] MEDS: MIDODRINE HCL 5 MG TABLET PO SCH ×3 (08:56→20:01)
[2020-07-16] MEDS: FAMOTIDINE 20MG TAB 20 MG TAB PO SCH (08:56)
[2020-07-16] MEDS: AMLODIPINE-BENAZEPRIL 5-10 MG PO SCH (08:56)
[2020-07-16] MEDS ORDERED: PHARMACY COMMUNICATION MISC SCH ×2 (11:15)
[2020-07-16] MEDS: PREGABALIN 100 MG CAPSULE PO SCH (20:00)
[2020-07-16] MEDS: MORPHINE SULFATE 2 MG/ML 1ML SYG IVP PRN (21:47)
--- NOTE | 2020-07-17 02:40 | NUR ---
CONTACT AND SPOKE WITH HOSPITALIST, MARCELINO LYNCH EDITING COMPUTER PUBLISHER, PT PLACE LEAD 3X AND KEEPS REMOVING IT AND PT SAID I DONT WANT IT. PER EDITING COMPUTER PUBLISHER OK TO MARLEEN TEJADA AND CONFIRMED. Addendum: 07/17/20 at 0510 by Davi Herndon RN PLACED NEW LEADS ON PT, AND CHANGED NEW BATTERIES. PT BED ALARM ON. SAFETY MONITORED.
--- NOTE | 2020-07-17 04:11 | NUR ---
RECEIVED REPORT FROM VIDA AUGUSTINE NURSE, ASSUMED CARE, PT SHIFT ASSESSMENT DONE, LUNG RESENDIZ CLEAR AND DIMINISHED, TIMED MEDCICATION GIVEN SEE EMAR, 24 CC DONE, SAFETY MAINTAINED.
[2020-07-17 04:20] VITALS: BP 137/66
[2020-07-17] MEDS: METRONIDAZOLE 500MG/100ML BAG 100 ML IV SCH ×3 (04:54→21:05)
[2020-07-17] MEDS: ZOSYN 3.375GM+NS 50ML 50 ML IV SCH ×2 (04:59→17:45)
[2020-07-17 06:20] VITALS: BP 136/60
--- NOTE | 2020-07-17 06:51 | NUR ---
CONTACT AND SPOKE WITH [facility], GIVEN LAB RESULTS FOR IRON, TIBC AND SATURATION, SUYAPA WILL CHANGED THE TIMING ON PROCRIT ADMINISTRATION.
[2020-07-17] MEDS: AMLODIPINE-BENAZEPRIL 5-10 MG PO SCH (08:51)
[2020-07-17] MEDS: ASPIRIN 81 MG EC TAB PO SCH (08:52)
[2020-07-17] MEDS: MIDODRINE HCL 5 MG TABLET PO SCH ×3 (08:52→20:12)
[2020-07-17] MEDS: CLOPIDOGREL BISULFATE 75 MG TAB PO SCH (08:52)
[2020-07-17] MEDS: FAMOTIDINE 20MG TAB 20 MG TAB PO SCH (08:52)
[2020-07-17] MEDS: TAMSULOSIN HCL 0.4 MG CAP.ER.24H PO SCH (08:52)
[2020-07-17 11:00] VITALS: BP 148/85
[2020-07-17 11:22] LABS: BASOPHILS % (AUTO) 1.1 % (0.0-5.0); EOSINOPHILS % (AUTO) 5.7 % (0.0-8.0); HEMATOCRIT 28.9 % (42-54); LYMPHOCYTES % (AUTO) 7.7 % (21.0-51.0); MEAN CORPUSCULAR HEMOGLOBIN 28.6 pg (27.0-33.0); MEAN CORPUSCULAR HGB CONC 30.1 g/dL (32.0-36.0); MEAN CORPUSCULAR VOLUME 95.1 fL (79-99); MONOCYTES % (AUTO) 6.6 % (3.0-13.0); NEUTROPHILS % (AUTO) 78.4 % (40.0-77.0); PLATELET COUNT (AUTO) 242 K/uL (130-400); RED BLOOD CELL COUNT(AUTO) 3.04 MIL/uL (4.50-6.20); WHITE BLOOD COUNT (AUTO) 10.2 K/uL (4.8-10.8)
[2020-07-17 11:32] LABS: POTASSIUM 3.7 mmol/L (3.5-5.1)
[2020-07-17 16:00] VITALS: BP 126/58
--- NOTE | 2020-07-17 16:20 | NUR ---
NOTED PATIENT KNEELING ON FLOOR EDGE OF BED, PATIENT CONFUSED PULLING AT WIRES, NO INJURIES NOTED. PICC LINE TO RIGHT ARM APPEARS TO HAVE BEEN PULLED OUT A BIT, DRESSING INTACT. DR. STEEN MADE AWARE NEW ORDER XRAY TO CONFIRM PICC LINE PLACEMENT AND 1:1 SITTER. FAMILY MADE AWARE
[2020-07-17] MEDS: EPOETIN ALFA 10,000 UNIT/ML VIAL SQ SCH (20:06)
[2020-07-17] MEDS: PREGABALIN 100 MG CAPSULE PO SCH (20:06)
[2020-07-17 21:22] VITALS: BP 111/60
--- NOTE | 2020-07-17 21:26 | NUR ---
informed by rylie laborer beam house, pt negative of covid(-), waiting for transfer orders, order acknowledge, transfer to room 306 given handoff to [facility] receiving nurse, safety maintained.
[2020-07-17] MEDS: MORPHINE SULFATE 2 MG/ML 1ML SYG IVP PRN (22:09)
--- NOTE | 2020-07-17 23:48 | NUR ---
received by 3b nurse gilbert vasquez rn, informed receiving nurse given 2100 medication, called back ff up if i given heparin and lasix iv, informed her pt no iv, picc line just had a chest xray to confirm placement, called back and informed 3b nurse pt have change lasix iv to po and no heparin. for continuity patient care.
[2020-07-18] VITALS: BP 140/86
[2020-07-18 04:00] VITALS: BP 121/65
[2020-07-18] MEDS: METRONIDAZOLE 500MG/100ML BAG 100 ML IV SCH ×3 (05:09→20:55)
[2020-07-18] MEDS: ZOSYN 3.375GM+NS 50ML 50 ML IV SCH ×2 (05:09→17:45)
[2020-07-18] MEDS: MIDODRINE HCL 5 MG TABLET PO SCH ×3 (09:00→20:53)
--- NOTE | 2020-07-18 10:09 | NUR ---
called to assess picc placement. per radiology note, picc is 3 cm in atrium. noted picc has 9 cm exposed as charted by previous picc nurse. picc dressing removed and insertion site scrubbed thoroughly with chlorhexadine swab x 2. picc pulled back 5 cm and new biopatch, stat-taks and tegaderm dressing applied using aseptic technique. [place] and blue ports are functional with (+) blood return, flushed and clamped. advised dr. burr of non-functioning 3rd white port. Dr. burr ordered cath flow in white port.
[2020-07-18] MEDS: AMLODIPINE-BENAZEPRIL 5-10 MG PO SCH (10:35)
[2020-07-18] MEDS: ASPIRIN 81 MG EC TAB PO SCH (10:35)
[2020-07-18] MEDS: CLOPIDOGREL BISULFATE 75 MG TAB PO SCH (10:35)
[2020-07-18] MEDS: FAMOTIDINE 20MG TAB 20 MG TAB PO SCH (10:35)
[2020-07-18] MEDS: TAMSULOSIN HCL 0.4 MG CAP.ER.24H PO SCH (10:35)
[2020-07-18 11:00] VITALS: BP 128/64
[2020-07-18] MEDS ORDERED: PHARMACY COMMUNICATION MISC SCH (12:45)
[2020-07-18] MEDS ORDERED: ALTEPLASE 2 MG/VIAL IVCATH ONE (14:00)
[2020-07-18 16:00] VITALS: BP 111/55
[2020-07-18 20:00] VITALS: BP 127/64
[2020-07-18] MEDS: PREGABALIN 100 MG CAPSULE PO SCH (20:53)
--- NOTE | 2020-07-18 23:20 | NUR ---
BIGEMINAL FREQ PVC'S, FREQ COUPLETS AND WIDE QRS COMPLEX REPORTED BY TELE STAFF (Marcy) Called Dr. Story through phone and was told that he was calm, resting comfortably and no chest pain. MD ordered to place pt. on cardiology consult in AM and Lab chem: BMP and Magnesium in AM. Also, to continue monitor the patient.
[2020-07-19] VITALS (7 sets, daily range): BP systolic 92–127; BP diastolic 50–73
[2020-07-19 04:13] LABS: CREATININE 5.2 mg/dL (0.5-1.5); MAGNESIUM 2.1 mg/dL (1.80-2.40); POTASSIUM 3.2 mmol/L (3.5-5.1)
[2020-07-19] MEDS: METRONIDAZOLE 500MG/100ML BAG 100 ML IV SCH ×3 (04:54→22:46)
[2020-07-19] MEDS: ZOSYN 3.375GM+NS 50ML 50 ML IV SCH ×2 (04:54→18:52)
--- NOTE | 2020-07-19 05:24 | NUR ---
PT STILL HAVING A BIGEMINAL FREQ PVC'S, FREQ COUPLETS AND WIDE QRS COMPLEX REPORTED BY TELE STAFF. CONTINUED TO BE MONITORED. NO COMPLAINTS OF CHEST PAIN OR ANY DISCOMFORT. RESTING COMFORTABLY. NO APPARENT DISTRESS NOTED. WILL REPORT ACCORDINGLY TO DAY SHIFT RN.
--- NOTE | 2020-07-19 07:00 | NUR ---
DR. Duane MD rounded: Seen and visited pt with an order to have the Dialysis Nurse call her. wants pt's dialysis to be done in AM today and that pt needs to have 4 potassium bath. 0705: furniture painter Tamara made aware thru phone.
[2020-07-19] MEDS: FAMOTIDINE 20MG TAB 20 MG TAB PO SCH (10:47)
[2020-07-19] MEDS: TAMSULOSIN HCL 0.4 MG CAP.ER.24H PO SCH (10:48)
[2020-07-19] MEDS: MIDODRINE HCL 5 MG TABLET PO SCH ×3 (10:49→20:27)
[2020-07-19] MEDS: ASPIRIN 81 MG EC TAB PO SCH (13:13)
[2020-07-19] MEDS: CLOPIDOGREL BISULFATE 75 MG TAB PO SCH (13:14)
[2020-07-19] MEDS: MORPHINE SULFATE 2 MG/ML 1ML SYG IVP PRN ×2 (13:17→19:35)
--- NOTE | 2020-07-19 14:35 | NUR ---
1415 patient received BPCI Letter.
--- NOTE | 2020-07-19 15:05 | NUR ---
HAZARD WASTE HANDLER CONSULT: DR PANTOJA MADE AWARE.
--- NOTE | 2020-07-19 20:00 | NUR ---
ASSESSMENT NOTE PATIENT AWAKE, ALERT, OX2, PATIENT CALM, COOPERATIVE, RIGHT BKA STUMP D/I, TEACH PATIENT PLAN OF CARE AND EXPECTED OUTCOME, PATIENT VERBALIZES UNDERSTANDING VIA TEACH BACK, 1;1 AT BEDSIDE
[2020-07-19] MEDS: EPOETIN ALFA 10,000 UNIT/ML VIAL SQ SCH (20:27)
[2020-07-19] MEDS: PREGABALIN 25 MG CAP PO SCH (20:27)
[2020-07-20 03:58] LABS: HEMATOCRIT 28.6 % (42-54); MEAN CORPUSCULAR HEMOGLOBIN 28.2 pg (27.0-33.0); MEAN CORPUSCULAR HGB CONC 30.4 g/dL (32.0-36.0); MEAN CORPUSCULAR VOLUME 92.9 fL (79-99); RED BLOOD CELL COUNT(AUTO) 3.08 MIL/uL (4.50-6.20); RED CELL DISTRIBUTION WIDTH 16.1 % (11.0-15.5); WHITE BLOOD COUNT (AUTO) 5.3 K/uL (4.8-10.8)
[2020-07-20 04:00] VITALS: BP 108/82
[2020-07-20 04:21] LABS: CREATININE 4.5 mg/dL (0.5-1.5); POTASSIUM 3.4 mmol/L (3.5-5.1)
[2020-07-20] MEDS: ZOSYN 3.375GM+NS 50ML 50 ML IV SCH ×2 (04:59→17:45)
[2020-07-20] MEDS: METRONIDAZOLE 500MG/100ML BAG 100 ML IV SCH ×3 (05:07→22:15)
--- NOTE | 2020-07-20 06:00 | NUR ---
DRESSING CHANGE CHANGE DRESSING RIGHT BKA(STUMP), DRY ESCHAR NOTED ALONG INCISION, NO DRAINAGE NOTED, CLEANSED WITH BETADINE, APPLY 4X4 AND KERLIX ROLL
[2020-07-20 08:00] VITALS: BP 103/67
[2020-07-20] MEDS: FAMOTIDINE 20MG TAB 20 MG TAB PO SCH (09:56)
[2020-07-20] MEDS: TAMSULOSIN HCL 0.4 MG CAP.ER.24H PO SCH (09:57)
[2020-07-20] MEDS: MIDODRINE HCL 5 MG TABLET PO SCH ×3 (09:57→22:15)
[2020-07-20] MEDS: CLOPIDOGREL BISULFATE 75 MG TAB PO SCH (09:57)
[2020-07-20] MEDS: ASPIRIN 81 MG EC TAB PO SCH (09:57)
[2020-07-20 11:00] VITALS: BP 109/52
[2020-07-20 16:00] VITALS: BP 118/76
--- NOTE | 2020-07-20 17:20 | NUR ---
CM Note: Spouse called CM received call from spouse Tanya Matos. Initially agreeable for [facility] Ko[facility]. As per spouse cancel request, she prefers to take patient home instead, spouse uncertain about transferring patient. Spouse verbalized there is too many covid patients everywhere. Explained to spouse again purpose of transfer, the need for IV antibiotics, wound care, and PT. Spouse verbalized at this time she would like pt to remain in the hospital or go home. Informed spouse will not follow through w/GP referral. Will inform Dr Story of spouse decision. CM informed DR Story of spouse request. MD aware. Will keep pt and continue treatments in hospital for now.
[2020-07-20 20:32] VITALS: BP 104/72
[2020-07-20] MEDS: PREGABALIN 25 MG CAP PO SCH (22:15)
[2020-07-21 00:36] VITALS: BP 116/54
[2020-07-21 04:36] VITALS: BP 109/72
[2020-07-21 08:00] VITALS: BP 133/68
--- NOTE | 2020-07-21 08:44 | NUR ---
RDSCREEN - LOS X 10 Pt admitted with Hypokalemia, hypothermia. Pt is tolerating Renal Dialysis, 75gm CC diet order with no report of GI distress, good PO intake at 100%. Pt continues with hypokalemia. Elevated Cr. (4.5) and BUN (23), decreased GFR (14). Pt with BKA stump. Pt with AMS. Recommend to add Nepro Daily Moderate potassium foods okay d/t hypokalemia. Recommend continue current diet order RD to continue to monitor. Please notify as additional nutrition concerns arise. Thank you.
[2020-07-21 11:24] VITALS: BP 153/75
--- NOTE | 2020-07-21 13:57 | NUR ---
DISCHARGE PLANNING- HOME HEALTH PSOEK TO DR. STEEN- ADVISED HIM THAT NOTES SAY PATIENT ALREADY HAS A HOME HEALTH AND THAT CM WILL FOLLOW UP WITH THEM TO SEND ALL INFO. KELVIN TO DR. MARTHA ORELLANA OFFICE TO CONFIRM NAME OF HOME HEALTH HOME HEALTH CHECK, WILL SEND REFERRMORIAH SABILLONT TO HH AND TO MD PAINTINGS CONSERVATOR AWARE THAT REPOT FOR HH WILLNEED TO BE CALLED.
[2020-07-21] MEDS: MIDODRINE HCL 5 MG TABLET PO SCH ×2 (14:00→14:54)
--- NOTE | 2020-07-21 14:52 | NUR ---
DISCHARGE PLAN:::HOME WITH PREVIOUS HOME HEALTH. CALL TO SPOUSE- STATES USED HOME HEALTH CHACK IN THE PAST. CALL TO OFFICE OF DR. MARTHA VERA, STAFF STATES WITH NEED NEW RX. ADVISED STAFF THAT DR. Grullon WILL NOT BE THE ONE SIGNING FOR HOME HEALTH, DR. MARTHA VERA WILL. CALL TO FAMILY TO DISCUSS TRANSPORT- FAMILY STATES WILL WILL DESIGN QUALITY ENGINEER PATIENT. STATES THEY HAVE A HOSPITAL BED (OLD) AND A WHEELCHAIR (OLD) THEY STATES THAT PATIENT NEEDS A HOSP BED WITH A TRAPEZE AND A LIGHT WEIGHT MANUAL WHEEL CHAIR THAT PATIENT CAN SELF PROPEL., ANAYA FOR HOME HEALTH CHECK AND FOR RENAISSANCE ZAHRA ISAAC WILL SEND ALL FORM TO DR. PENDLETON OFFICE FOR HER TO SIGN AND FORWARD. VERBALIZE UNDERSTANDING. WILL SET H UP SAME AND LET IRMA RIVAS RN KNOW OF PLAN Addendum: 07/21/20 at 1503 by MARY BURGESS RN CM Amended: Links added.
[2020-07-21] MEDS: ASPIRIN 81 MG EC TAB PO SCH (14:54)
[2020-07-21] MEDS: FAMOTIDINE 20MG TAB 20 MG TAB PO SCH (14:54)
[2020-07-21] MEDS: TAMSULOSIN HCL 0.4 MG CAP.ER.24H PO SCH (14:54)
[2020-07-21] MEDS: CLOPIDOGREL BISULFATE 75 MG TAB PO SCH (14:54)
--- NOTE | 2020-07-21 18:00 | NUR ---
REFERRAL TO HOME HEALTH CHECK NEEDS PCP( DR VIERA. NOT A CURRENT PATIENT. ALL INFO FAXED TO COMPANY NO CALL BACK TO CONFIRM THAT PATIENT HAS BEEN ACCEPTED. PATIENT IS SAFE TO DC WITH BETADINE DRESSING - TO FOLLOW UP ON FRIDAY WITH HH AND MD OFFICE
--- NOTE | 2020-07-21 18:30 | NUR ---
NOTE DISCHARGE INSTRUCTIONS DISCUSSED WITH ON TELEPHONE AND AGAIN WHEN PATIENT TAKEN TO E.R. FOR HIM MANAGER. DRESSING TO RIGHT STUMP CHANGED PRIOR AND PICC LINE TO RIGHT ARM DC'D. NO RX FOR ABX AND RX FOR METOPROLOL, ATORVASTATIN AND PROTONIX CALLED INTO [facility].
[2020-07-21] MEDS ORDERED: ATORVASTATIN CALCIUM 40 MG TABLET PO SCH (21:00)
[2020-07-21] MEDS ORDERED: METOPROLOL TARTRATE 25 MG TAB PO SCH (21:00)
--- NOTE | 2020-07-22 14:39 | NUR ---
DISCHARGE MEDICATIONS DISCHARGE MEDICATIONS CALLED IN TO [facility] 1. METOPROLOL TARTRATE 25MG PO BID FOR 30 DAYS 2. PROTONIX 40MG PO DAILY FOR 30 DAYS 3. ATORVASTATIN 40MG PO AT BEDTIME 30 DAYS
== END 2020-07-21 19:25 | disposition home health service (06) | DRG 564 ==
LOC: EDH 00:39 → EDHIP 02:33 → DAHIP 03:17 → 4AH 07-15 17:00 → 3BH 07-17 21:38
PROVIDERS: ADMIT Internal Medicine Infectious Disease; ATTEND Internal Medicine Infectious Disease
PROC: 5A1D70Z Performance of Urinary Filtration, Intermittent, Less than 6 Hours Per Day (ICD-10-PCS; principal; 2020-07-12)
PROC: 5A09357 Assistance with Respiratory Ventilation, Less than 24 Consecutive Hours, Continuous Positive Airway Pressure (ICD-10-PCS; 2020-07-13)
PROC: 5A1D70Z Performance of Urinary Filtration, Intermittent, Less than 6 Hours Per Day (ICD-10-PCS; 2020-07-14)
PROC: 5A09357 Assistance with Respiratory Ventilation, Less than 24 Consecutive Hours, Continuous Positive Airway Pressure (ICD-10-PCS; 2020-07-14)
PROC: 5A1D70Z Performance of Urinary Filtration, Intermittent, Less than 6 Hours Per Day (ICD-10-PCS; 2020-07-17)
PROC: 02HV33Z Insertion of Infusion Device into Superior Vena Cava, Percutaneous Approach (ICD-10-PCS; 2020-07-18)
PROC: 5A1D70Z Performance of Urinary Filtration, Intermittent, Less than 6 Hours Per Day (ICD-10-PCS; 2020-07-19)
PROC: 5A1D70Z Performance of Urinary Filtration, Intermittent, Less than 6 Hours Per Day (ICD-10-PCS; 2020-07-21)
DX: T87.43 Infection of amputation stump, right lower extremity (principal); A41.9 Sepsis, unspecified organism; R65.21 Severe sepsis with septic shock; N18.6 End stage renal disease; G93.41 Metabolic encephalopathy; L03.115 Cellulitis of right lower limb; I12.0 Hypertensive chronic kidney disease with stage 5 chronic kidney disease or end stage renal disease; I69.354 Hemiplegia and hemiparesis following cerebral infarction affecting left non-dominant side; E87.6 Hypokalemia; E03.9 Hypothyroidism, unspecified; E11.22 Type 2 diabetes mellitus with diabetic chronic kidney disease; D63.1 Anemia in chronic kidney disease; E11.51 Type 2 diabetes mellitus with diabetic peripheral angiopathy without gangrene; E11.649 Type 2 diabetes mellitus with hypoglycemia without coma; E66.9 Obesity, unspecified; E78.5 Hyperlipidemia, unspecified; I34.0 Nonrheumatic mitral (valve) insufficiency; I45.10 Unspecified right bundle-branch block; Z20.828 Contact with and (suspected) exposure to other viral communicable diseases; Y83.5 Amputation of limb(s) as the cause of abnormal reaction of the patient, or of later complication, without mention of misadventure at the time of the procedure; Z68.27 Body mass index [BMI] 27.0-27.9, adult; Y92.89 Other specified places as the place of occurrence of the external cause; I25.2 Old myocardial infarction; Z99.2 Dependence on renal dialysis; Z74.01 Bed confinement status; Z83.3 Family history of diabetes mellitus; Z82.49 Family history of ischemic heart disease and other diseases of the circulatory system
CPT/HCPCS: 36415; 70450; 71045; 80048; 80053; 80074; 80305; 81001; 82140; 82550; 82947; 82948; 83540; 83550; 83605; 83690; 83735; 84484; 85025; 85027; 85610; 85730; 87040; 87324; 87426; 90935; 93005; 94660; 99291; A6250; C1751; C1894; G0378; G0481; J0885; J1610; J2543; J2997; J3480; J3490; J7070; P9046; U0003

== ENCOUNTER 2020-11-08 11:45 | Inpatient (IN) | payer MEDICARE ==
[~2020-11-08] VITALS: Ht 170.2 cm; Wt 59.9 kg
[~2020-11-08 11:45] MED LIST changes: -AMLO1CAP5 PO
[2020-11-08] MEDS ORDERED: ALBUTEROL INHALER 90MCG/INH IH ONE (13:08)
[2020-11-08] MEDS ORDERED: CEFTRIAXONE SODIUM 1 GM ONE (13:09)
[2020-11-08] MEDS ORDERED: DEXAMETHASONE SOD PHOSPHATE 10MG/ML 1ML VIAL ONE (13:09)
[2020-11-08 13:10] LABS: BASOPHILS % (AUTO) 0.3 % (0.0-5.0); HEMATOCRIT 39.9 % (42-54); LYMPHOCYTES % (AUTO) 20.6 % (21.0-51.0); MEAN CORPUSCULAR HGB CONC 31.3 g/dL (32.0-36.0); MEAN CORPUSCULAR VOLUME 83.1 fL (79-99); MONOCYTES % (AUTO) 5.2 % (3.0-13.0); NEUTROPHILS % (AUTO) 73.6 % (40.0-77.0); PLATELET COUNT (AUTO) 176 K/uL (130-400); WHITE BLOOD COUNT (AUTO) 3.5 K/uL (4.8-10.8)
[2020-11-08] MEDS ORDERED: AZITHROMYCIN 250 MG TABLET PO ONE (13:10)
[2020-11-08 13:14] LABS: CREATININE 4.7 mg/dL (0.5-1.5); INR 1.16 (0.85-1.15); POTASSIUM 3.8 mmol/L (3.5-5.1); PROTHROMBIN TIME 12.2 SEC (9.6-11.6)
[2020-11-08 13:15] LABS: PARTIAL THROMBOPLASTIN TIME 33.3 SEC (26.3-35.5)
[2020-11-08 13:25] LABS: ALBUMIN 2.7 g/dL (3.5-5.0); BILIRUBIN,TOTAL 0.4 mg/dL (0.2-1.0); TOTAL PROTEIN, SERUM 6.5 g/dL (6.0-8.3); TROPONIN I 0.16 ng/mL (0.00-0.06)
[2020-11-08] MEDS ORDERED: ASPIRIN 325 MG TABLET ONE (14:56)
[2020-11-08 15:59] LABS: ABG BASE EXCESS 1.6 mmol/L (-2.0-3.0); ABG HCO3 26.2 mmol/L (21.0-28.0); ABG OXYGEN SATURATION 93.3 % (95.0-99.0); ABG PCO2 41 mmHg (35-48)
[2020-11-08] MEDS ORDERED: CEFEPIME HCL 1 GM VIAL ONE (16:01)
[2020-11-08] MEDS ORDERED: DOXYCYCLINE HYCLATE 100 MG TABLET PO ONE (16:02)
[2020-11-08] MEDS ORDERED: ONDANSETRON HCL 4 MG/2 ML VIAL IVP PRN (16:45)
[2020-11-08] MEDS ORDERED: ACETAMINOPHEN 325 MG TAB PO PRN (16:45)
[2020-11-08] MEDS ORDERED: DEXAMETHASONE 4 MG TAB PO SCH (17:00)
[2020-11-08] MEDS ORDERED: CEFEPIME HCL 1 GM VIAL IVP SCH (17:00)
[2020-11-08] MEDS ORDERED: INSULIN R PO SS1 SQ SCH (21:00)
[2020-11-08] MEDS ORDERED: HEPARIN SODIUM 5000UNIT/ML 1ML VIAL SQ SCH (21:00)
[2020-11-08] MEDS ORDERED: DOXYCYCLINE HYCLATE 100 MG TABLET PO SCH (21:00)
[2020-11-08] MEDS ORDERED: HEPARIN SODIUM 5000UNIT/ML 1ML VIAL ONE (21:16)
[2020-11-08] MEDS ORDERED: INSULIN HUMULIN R 100 UNIT/ML 3ML ONE (21:17)
[2020-11-09] MEDS ORDERED: DOXYCYCLINE HYCLATE 100 MG TABLET PO ONE ×2 (05:17→08:11)
[2020-11-09 06:38] LABS: HEMATOCRIT 50.8 % (42-54); LYMPHOCYTES % (AUTO) 30.4 % (21.0-51.0); MEAN CORPUSCULAR HEMOGLOBIN 26.4 pg (27.0-33.0); MEAN CORPUSCULAR HGB CONC 31.9 g/dL (32.0-36.0); MEAN CORPUSCULAR VOLUME 82.7 fL (79-99); MONOCYTES % (AUTO) 7.2 % (3.0-13.0); NEUTROPHILS % (AUTO) 61.7 % (40.0-77.0); PLATELET COUNT (AUTO) 236 K/uL (130-400); RED BLOOD CELL COUNT(AUTO) 6.14 MIL/uL (4.50-6.20); RED CELL DISTRIBUTION WIDTH 15.3 % (11.0-15.5); WHITE BLOOD COUNT (AUTO) 1.4 K/uL (4.8-10.8)
[2020-11-09 06:47] LABS: CREATININE 4.7 mg/dL (0.5-1.5); POTASSIUM 3.8 mmol/L (3.5-5.1)
[2020-11-09] MEDS ORDERED: HEPARIN SODIUM 5000UNIT/ML 1ML VIAL ONE ×2 (08:11→20:38)
[2020-11-09] MEDS ORDERED: CEFEPIME HCL 1 GM VIAL ONE (17:04)
[2020-11-09] MEDS ORDERED: INSULIN HUMULIN R 100 UNIT/ML 3ML ONE ×2 (18:20→20:39)
[2020-11-09 20:19] LABS: APPEARANCE,URINE Clear (CLEAR); BILIRUBIN,URINE Negative (NEGATIVE); COLOR,URINE Dark Yellow (YELLOW); GLUCOSE, URINE (UA) TRACE mg/dL (NEGATIVE); KETONES,URINE Negative (NEGATIVE); LEUKOCYTE ESTERASE ,URINE Negative (NEGATIVE); NITRATE,URINE Negative (NEGATIVE); OCCULT BLOOD,URINE Negative (NEGATIVE); PROTEIN,URINE >=1000 mg/dL (NEGATIVE); UROBILINOGEN,URINE 0.2 mg/dL (0.2-1.0)
[2020-11-09 20:37] LABS: BACTERIA,URINE Few /HPF (None Seen); RBC,URINE 0-1 /HPF (0-1); SQUAMOUS EPITHELIAL CELL,UR Few /HPF (0-2); WBC,URINE 0-1 /HPF (0-1)
[2020-11-09 20:38] LABS: MUCUS,URINE Rare LPF (None Seen)
[2020-11-09] MEDS ORDERED: DOXYCYCLINE 100MG+NS 250ML 250 ML IV ONE (20:38)
[2020-11-10] MEDS ORDERED: DOXYCYCLINE HYCLATE 100 MG TABLET PO ONE (08:45)
[2020-11-10] MEDS ORDERED: HEPARIN SODIUM 5000UNIT/ML 1ML VIAL ONE (08:45)
[2020-11-10] MEDS ORDERED: ACETAMINOPHEN 325 MG TAB ONE (15:48)
[2020-11-10 16:46] VITALS: BP 123/70
== END 2020-11-10 18:46 | disposition left against medical advice (07) | DRG 177 ==
LOC: EDH 11:45 → EDHIP 13:49 → 2AH 11-10 16:17
PROVIDERS: ADMIT Internal Medicine Infectious Disease; ATTEND Internal Medicine Infectious Disease
DX: U07.1 COVID-19 (principal); J12.89 Other viral pneumonia; N18.6 End stage renal disease; J96.91 Respiratory failure, unspecified with hypoxia; I12.0 Hypertensive chronic kidney disease with stage 5 chronic kidney disease or end stage renal disease; Z53.29 Procedure and treatment not carried out because of patient's decision for other reasons; E11.22 Type 2 diabetes mellitus with diabetic chronic kidney disease; E11.51 Type 2 diabetes mellitus with diabetic peripheral angiopathy without gangrene; I25.10 Atherosclerotic heart disease of native coronary artery without angina pectoris; E03.9 Hypothyroidism, unspecified; R53.81 Other malaise; Z89.511 Acquired absence of right leg below knee; Z83.3 Family history of diabetes mellitus
CPT/HCPCS: 36415; 36600; 71045; 80048; 80053; 81001; 82550; 82803; 82948; 83605; 83874; 84145; 84484; 85025; 85610; 85730; 86900; 86901; 87040; 87077; 87088; 87186; 87426; 93005; 99291; G0378; J0692; J0696; J1100; J1644; J1815; J3490

== ENCOUNTER 2020-12-04 15:26 | Emergency (ER) | payer MEDICARE | END 2020-12-04 17:17 | disposition home or self-care (01) | LOC: EDH 15:26 | DX: S09.90XA Unspecified injury of head, initial encounter (principal); I12.0 Hypertensive chronic kidney disease with stage 5 chronic kidney disease or end stage renal disease; E11.22 Type 2 diabetes mellitus with diabetic chronic kidney disease; N18.6 End stage renal disease; E07.9 Disorder of thyroid, unspecified; Z99.2 Dependence on renal dialysis; W01.198A Fall on same level from slipping, tripping and stumbling with subsequent striking against other object, initial encounter; Y93.89 Activity, other specified; Y92.89 Other specified places as the place of occurrence of the external cause; Y99.8 Other external cause status | CPT/HCPCS: 70450; 72040 ==

== ENCOUNTER 2021-03-05 17:58 | Emergency (ER) | payer MEDICARE ==
[2021-03-05 18:46] LABS: BASOPHILS % (AUTO) 2.6 % (0.0-5.0); EOSINOPHILS % (AUTO) 1.4 % (0.0-8.0); HEMATOCRIT 39.7 % (42-54); LYMPHOCYTES % (AUTO) 13.3 % (21.0-51.0); MEAN CORPUSCULAR HEMOGLOBIN 30.4 pg (27.0-33.0); MEAN CORPUSCULAR HGB CONC 33.5 g/dL (32.0-36.0); MEAN CORPUSCULAR VOLUME 90.6 fL (79-99); MONOCYTES % (AUTO) 5.1 % (3.0-13.0); NEUTROPHILS % (AUTO) 77.3 % (40.0-77.0); PLATELET COUNT (AUTO) 184 K/uL (130-400); RED BLOOD CELL COUNT(AUTO) 4.38 MIL/uL (4.50-6.20); RED CELL DISTRIBUTION WIDTH 13.3 % (11.0-15.5); WHITE BLOOD COUNT (AUTO) 6.6 K/uL (4.8-10.8)
[2021-03-05] MEDS ORDERED: ACETAMINOPHEN EXTRA STRENGTH 500 MG TABLET ONE (18:48)
[2021-03-05] MEDS ORDERED: CYCLOBENZAPRINE HCL 10 MG TABLET ONE (18:48)
[2021-03-05 19:12] LABS: CREATININE 3.2 mg/dL (0.5-1.5); POTASSIUM 4.5 mmol/L (3.5-5.1)
[2021-03-05 19:17] LABS: ALBUMIN 3.8 g/dL (3.5-5.0); BILIRUBIN,TOTAL 0.3 mg/dL (0.2-1.0)
== END 2021-03-05 20:28 | disposition home or self-care (01) ==
LOC: EDH 17:58
DX: G44.209 Tension-type headache, unspecified, not intractable (principal); E78.00 Pure hypercholesterolemia, unspecified; I12.0 Hypertensive chronic kidney disease with stage 5 chronic kidney disease or end stage renal disease; E11.22 Type 2 diabetes mellitus with diabetic chronic kidney disease; N18.6 End stage renal disease; Z99.2 Dependence on renal dialysis; Z89.511 Acquired absence of right leg below knee
CPT/HCPCS: 36415; 70450; 80053; 85025; 96365; 99284; J2550

== ENCOUNTER 2021-07-16 16:37 | Observation (INO) | payer MEDICARE ==
[~2021-07-16] VITALS: Ht 170.2 cm; Wt 68.0 kg
[2021-07-16 17:08] VITALS: BP 107/45
[2021-07-16 17:51] LABS: BASOPHILS % (AUTO) 1.6 % (0.0-5.0); EOSINOPHILS % (AUTO) 1.6 % (0.0-8.0); HEMATOCRIT 35.6 % (42-54); LYMPHOCYTES % (AUTO) 19.3 % (21.0-51.0); MEAN CORPUSCULAR HEMOGLOBIN 29.9 pg (27.0-33.0); MEAN CORPUSCULAR HGB CONC 33.4 g/dL (32.0-36.0); MEAN CORPUSCULAR VOLUME 89.4 fL (79-99); MONOCYTES % (AUTO) 6.5 % (3.0-13.0); NEUTROPHILS % (AUTO) 70.7 % (40.0-77.0); PLATELET COUNT (AUTO) 159 K/uL (130-400); RED BLOOD CELL COUNT(AUTO) 3.98 MIL/uL (4.50-6.20); RED CELL DISTRIBUTION WIDTH 13.2 % (11.0-15.5); WHITE BLOOD COUNT (AUTO) 6.7 K/uL (4.8-10.8)
[2021-07-16 18:03] LABS: CREATININE 3.2 mg/dL (0.5-1.5); POTASSIUM 4.1 mmol/L (3.5-5.1)
[2021-07-16 18:04] LABS: INR 1.05 (0.85-1.15); PROTHROMBIN TIME 11.4 SEC (9.6-11.6)
[2021-07-16 18:05] LABS: PARTIAL THROMBOPLASTIN TIME 28.5 SEC (26.3-35.5)
[2021-07-16 18:08] LABS: ALBUMIN 3.5 g/dL (3.5-5.0); BILIRUBIN,TOTAL 0.3 mg/dL (0.2-1.0); TOTAL PROTEIN, SERUM 7.4 g/dL (6.0-8.3)
[2021-07-16 18:23] LABS: CRP QUANTITATIVE 15.7 mg/L (0.00-9.0); MAGNESIUM 2.2 mg/dL (1.80-2.40)
[2021-07-16 18:24] LABS: B-TYPE NATRIURETIC PEPTIDE 389 pg/mL (0-100)
[2021-07-16 19:01] VITALS: BP 125/61
[2021-07-16 20:15] VITALS: BP 133/65
[2021-07-16] MEDS: PHARMACY COMMUNICATION MISC SCH (23:30)
[2021-07-16] MEDS ORDERED: GLUCAGON 1MG KIT 1 MG ML IM PRN (23:30)
[2021-07-16] MEDS ORDERED: DEXTROSE 50%-WATER 50 ML DISP.SYRIN IV PRN (23:30)
[2021-07-17 03:01] LABS: TROPONIN I 0.05 ng/mL (0.00-0.06)
[2021-07-17] MEDS: PHARMACY COMMUNICATION MISC SCH ×2 (05:30→09:46)
[2021-07-17] MEDS: INSULIN R PO SS1 SQ SCH ×2 (07:30→11:30)
[2021-07-17 08:08] LABS: BASOPHILS % (AUTO) 1.8 % (0.0-5.0); EOSINOPHILS % (AUTO) 3.1 % (0.0-8.0); HEMATOCRIT 37.8 % (42-54); LYMPHOCYTES % (AUTO) 24.3 % (21.0-51.0); MEAN CORPUSCULAR HEMOGLOBIN 29.2 pg (27.0-33.0); MEAN CORPUSCULAR HGB CONC 33.1 g/dL (32.0-36.0); MEAN CORPUSCULAR VOLUME 88.3 fL (79-99); MONOCYTES % (AUTO) 8.1 % (3.0-13.0); NEUTROPHILS % (AUTO) 62.3 % (40.0-77.0); PLATELET COUNT (AUTO) 179 K/uL (130-400); RED BLOOD CELL COUNT(AUTO) 4.28 MIL/uL (4.50-6.20); RED CELL DISTRIBUTION WIDTH 13.2 % (11.0-15.5); WHITE BLOOD COUNT (AUTO) 7.4 K/uL (4.8-10.8)
[2021-07-17] MEDS: METOPROLOL TARTRATE 25 MG TAB PO SCH ×2 (08:22→11:30)
[2021-07-17 08:35] LABS: ALBUMIN 3.5 g/dL (3.5-5.0); BILIRUBIN,TOTAL 0.3 mg/dL (0.2-1.0); CREATININE 3.9 mg/dL (0.5-1.5); MAGNESIUM 2.3 mg/dL (1.80-2.40); POTASSIUM 3.9 mmol/L (3.5-5.1); TOTAL PROTEIN, SERUM 7.3 g/dL (6.0-8.3); TROPONIN I 0.06 ng/mL (0.00-0.06)
[2021-07-17] MEDS ORDERED: ASPIRIN 81MG CHEW TAB PO SCH (09:00)
[2021-07-17 10:40] VITALS: BP 95/49
== END 2021-07-17 14:07 | disposition left against medical advice (07) ==
LOC: EDH 16:37 → EDHIP 22:35
PROVIDERS: ADMIT Internal Medicine Infectious Disease; ATTEND Internal Medicine Infectious Disease
DX: I25.110 Atherosclerotic heart disease of native coronary artery with unstable angina pectoris (principal); Z20.822 Contact with and (suspected) exposure to COVID-19; I12.0 Hypertensive chronic kidney disease with stage 5 chronic kidney disease or end stage renal disease; N18.6 End stage renal disease; D63.1 Anemia in chronic kidney disease; I73.9 Peripheral vascular disease, unspecified; E11.22 Type 2 diabetes mellitus with diabetic chronic kidney disease; E03.9 Hypothyroidism, unspecified; E78.00 Pure hypercholesterolemia, unspecified; I25.2 Old myocardial infarction; I44.0 Atrioventricular block, first degree; I45.10 Unspecified right bundle-branch block; E66.9 Obesity, unspecified; Z89.511 Acquired absence of right leg below knee; Z91.19 Patient's noncompliance with other medical treatment and regimen; Z79.4 Long term (current) use of insulin; Z79.899 Other long term (current) drug therapy; Z98.890 Other specified postprocedural states; Z79.82 Long term (current) use of aspirin; Z68.23 Body mass index [BMI] 23.0-23.9, adult
CPT/HCPCS: 36415 ×2; 70450; 71045; 80053 ×2; 82550 ×4; 82948; 83735 ×2; 83874 ×2; 83880; 84484 ×4; 85025 ×2; 85610; 85730; 86140; 87635; 93005 ×3; 99285; C9803; G0378 ×15

== ENCOUNTER 2021-10-04 20:35 | Inpatient (IN) | payer MEDICARE ==
[~2021-10-04] VITALS: Ht 170.2 cm; Wt 71.7 kg
[2021-10-04 21:40] LABS: BASOPHILS % (AUTO) 1.2 % (0.0-5.0); EOSINOPHILS % (AUTO) 2.8 % (0.0-8.0); LYMPHOCYTES % (AUTO) 19.4 % (21.0-51.0); MEAN CORPUSCULAR HGB CONC 32.2 g/dL (32.0-36.0); MEAN CORPUSCULAR VOLUME 90.2 fL (79-99); MONOCYTES % (AUTO) 7.4 % (3.0-13.0); NEUTROPHILS % (AUTO) 68.6 % (40.0-77.0); PLATELET COUNT (AUTO) 168 K/uL (130-400); WHITE BLOOD COUNT (AUTO) 8.8 K/uL (4.8-10.8)
[2021-10-04 21:52] LABS: CREATININE 4.5 mg/dL (0.5-1.5); POTASSIUM 4.9 mmol/L (3.5-5.1)
[2021-10-04 21:56] LABS: ALBUMIN 3.7 g/dL (3.5-5.0); BILIRUBIN,TOTAL 0.4 mg/dL (0.2-1.0); TOTAL PROTEIN, SERUM 7.6 g/dL (6.0-8.3)
[2021-10-04] MEDS ORDERED: VANCOMYCIN 1G/250ML KIT 250 ML IV ONE (22:30)
[2021-10-04] MEDS ORDERED: ZOSYN 3.375GM +NS 50ML IV ONE (22:30)
[2021-10-04] MEDS ORDERED: VANCOMYCIN 1G VIAL IVPB ONE (22:30)
[2021-10-05] VITALS (17 sets, daily range): BP systolic 112–190; BP diastolic 49–89
[2021-10-05] MEDS ORDERED: DEXTROSE 50%-WATER 50 ML DISP.SYRIN IV PRN (01:00)
[2021-10-05] MEDS ORDERED: GLUCAGON 1MG KIT 1 MG ML IM PRN (01:00)
[2021-10-05] MEDS ORDERED: MORPHINE 2 MG SYG IVP PRN (01:00)
[2021-10-05] MEDS ORDERED: VANCOMYCIN PROTOCOL PER PHARMACY IV SCH (01:00)
[2021-10-05 06:43] LABS: BASOPHILS % (AUTO) 1.4 % (0.0-5.0); EOSINOPHILS % (AUTO) 4.2 % (0.0-8.0); HEMATOCRIT 36.8 % (42-54); LYMPHOCYTES % (AUTO) 14.3 % (21.0-51.0); MEAN CORPUSCULAR HEMOGLOBIN 29.5 pg (27.0-33.0); MEAN CORPUSCULAR HGB CONC 32.6 g/dL (32.0-36.0); MEAN CORPUSCULAR VOLUME 90.4 fL (79-99); MONOCYTES % (AUTO) 9.1 % (3.0-13.0); NEUTROPHILS % (AUTO) 70.7 % (40.0-77.0); PLATELET COUNT (AUTO) 166 K/uL (130-400); RED BLOOD CELL COUNT(AUTO) 4.07 MIL/uL (4.50-6.20); WHITE BLOOD COUNT (AUTO) 6.2 K/uL (4.8-10.8)
[2021-10-05 06:49] LABS: CREATININE 4.7 mg/dL (0.5-1.5); POTASSIUM 4.4 mmol/L (3.5-5.1)
[2021-10-05 06:53] LABS: ALBUMIN 3.1 g/dL (3.5-5.0); BILIRUBIN,TOTAL 0.4 mg/dL (0.2-1.0); MAGNESIUM 2.3 mg/dL (1.80-2.40); PHOSPHORUS 6.7 mg/dL (2.5-4.9); TOTAL PROTEIN, SERUM 7.1 g/dL (6.0-8.3)
[2021-10-05 06:55] LABS: HEMOGLOBIN A1C 7.2 % (4.0-6.0)
[2021-10-05] MEDS: INSULIN R PO SS1 SQ SCH ×4 (07:30→20:57)
[2021-10-05] MEDS: ZOSYN 3.375GM+NS 50ML 50 ML IV SCH ×2 (10:16→21:00)
[2021-10-05] MEDS: ACETAMINOPHEN 325 MG TAB PO PRN (21:22)
[2021-10-05] MEDS: ONDANSETRON 4MG INJ IVP PRN (22:25)
[2021-10-06] MEDS ORDERED: TRAMADOL HCL 50 MG TABLET PO PRN
[2021-10-06 04:00] VITALS: BP 146/74
[2021-10-06] MEDS: INSULIN R PO SS1 SQ SCH ×4 (06:14→21:00)
[2021-10-06 08:00] VITALS: BP 163/98
[2021-10-06] MEDS: ZOSYN 3.375GM+NS 50ML 50 ML IV SCH ×2 (09:18→21:34)
[2021-10-06 11:47] VITALS: BP 131/73
[2021-10-06 16:52] VITALS: BP 141/74
[2021-10-06] MEDS ORDERED: COMB5OS OD (18:58)
[2021-10-06] MEDS ORDERED: METO25TA6 PO (18:58)
[2021-10-06] MEDS ORDERED: LATA7.5D OP (18:58)
[2021-10-06] MEDS ORDERED: FOLI1TAB61 PO (18:58)
[2021-10-06] MEDS ORDERED: PREG50CA63 PO (18:58)
[2021-10-06 20:00] VITALS: BP 137/71
[2021-10-06] MEDS: METOPROLOL TARTRATE 25 MG TAB PO SCH (21:34)
[2021-10-06] MEDS: BRIMONIDINE TARTRATE 0.2% 5 ML BOTTLE OD SCH (21:35)
[2021-10-06] MEDS: LATANOPROST 2.5 ML DROPS OP SCH (21:35)
[2021-10-06] MEDS: TIMOLOL MALEATE 0.5% 5 ML BOTTLE OD SCH (21:35)
[2021-10-07] VITALS (7 sets, daily range): BP systolic 123–154; BP diastolic 51–70
[2021-10-07] MEDS: INSULIN R PO SS1 SQ SCH ×4 (06:41→19:44)
[2021-10-07] MEDS ORDERED: 0.9% NACL 250ML 250 ML IV SCH ×2 (08:00→12:00)
[2021-10-07] MEDS: TIMOLOL MALEATE 0.5% 5 ML BOTTLE OD SCH ×2 (09:00→19:42)
[2021-10-07] MEDS: BRIMONIDINE TARTRATE 0.2% 5 ML BOTTLE OD SCH ×2 (09:00→19:41)
[2021-10-07] MEDS ORDERED: VANCOMYCIN 750MG VIAL IVPB SCH (09:00)
[2021-10-07] MEDS: LATANOPROST 2.5 ML DROPS OP SCH ×2 (09:00→19:44)
[2021-10-07] MEDS: ZOSYN 3.375GM+NS 50ML 50 ML IV SCH ×3 (09:41→20:08)
[2021-10-07 10:09] LABS: HEPATITIS Bs ANTIGEN SCREEN P Negative (Negative)
[2021-10-07] MEDS: Vitamin B Complex/Vit C/Folic Acid PO SCH (10:18)
[2021-10-07] MEDS: PREGABALIN 25 MG CAP PO SCH (10:18)
[2021-10-07] MEDS: METOPROLOL TARTRATE 25 MG TAB PO SCH ×2 (10:18→19:36)
[2021-10-07] MEDS ORDERED: VANCOMYCIN 1G/250ML KIT 250 ML IV SCH (14:00)
[2021-10-07] MEDS ORDERED: NYSTATIN 30 GM CREAM.GM. TP SCH (16:00)
[2021-10-08] VITALS (20 sets, daily range): BP systolic 128–172; BP diastolic 55–80
[2021-10-08] MEDS: INSULIN R PO SS1 SQ SCH ×4 (06:37→20:59)
[2021-10-08] MEDS ORDERED: DiphenhydrAMINE HCL 50 MG/ML VIAL IVP PRN (09:30)
[2021-10-08] MEDS: LATANOPROST 2.5 ML DROPS OP SCH ×2 (10:13→21:00)
[2021-10-08] MEDS: BRIMONIDINE TARTRATE 0.2% 5 ML BOTTLE OD SCH ×2 (10:13→21:00)
[2021-10-08] MEDS: TIMOLOL MALEATE 0.5% 5 ML BOTTLE OD SCH ×2 (10:13→21:00)
[2021-10-08] MEDS: ZOSYN 3.375GM+NS 50ML 50 ML IV SCH (10:14)
[2021-10-08] MEDS: PREGABALIN 25 MG CAP PO SCH (10:15)
[2021-10-08] MEDS: METOPROLOL TARTRATE 25 MG TAB PO SCH ×2 (10:15→21:00)
[2021-10-08] MEDS: Vitamin B Complex/Vit C/Folic Acid PO SCH (10:15)
[2021-10-08 12:28] LABS: CREATININE 5.4 mg/dL (0.5-1.5); POTASSIUM 4.1 mmol/L (3.5-5.1)
[2021-10-08] MEDS: VANCOMYCIN 1G/250ML KIT 250 ML IV SCH (22:17)
[2021-10-08] MEDS: 0.9% NACL 250ML 250 ML IV SCH (22:17)
[2021-10-09] VITALS (25 sets, daily range): BP systolic 108–174; BP diastolic 55–96
[2021-10-09] MEDS: ZOSYN 3.375GM+NS 50ML 50 ML IV SCH ×3 (00:12→21:25)
[2021-10-09 05:31] LABS: HEMATOCRIT 36.7 % (42-54); MEAN CORPUSCULAR HEMOGLOBIN 29.3 pg (27.0-33.0); MEAN CORPUSCULAR VOLUME 88.9 fL (79-99); RED BLOOD CELL COUNT(AUTO) 4.13 MIL/uL (4.50-6.20); RED CELL DISTRIBUTION WIDTH 12.9 % (11.0-15.5); WHITE BLOOD COUNT (AUTO) 6.3 K/uL (4.8-10.8)
[2021-10-09 05:43] LABS: INR 1.07 (0.85-1.15); PROTHROMBIN TIME 11.6 SEC (9.6-11.6)
[2021-10-09 05:44] LABS: CREATININE 3.4 mg/dL (0.5-1.5); PARTIAL THROMBOPLASTIN TIME 30.9 SEC (26.3-35.5); POTASSIUM 3.7 mmol/L (3.5-5.1)
[2021-10-09] MEDS: INSULIN R PO SS1 SQ SCH ×4 (06:26→21:00)
[2021-10-09] MEDS ORDERED: HEPARIN 10,000 UNIT/10ML (1,000 UNIT/ML) VIAL ONE (07:07)
[2021-10-09] MEDS ORDERED: IODIXANOL 320 MG/ML 100 ML VIAL ONE ×2 (07:08→08:37)
[2021-10-09] MEDS ORDERED: LIDOCAINE HCL 400MG/20ML VIAL ONE (07:08)
[2021-10-09] MEDS ORDERED: NITROGLYCERIN 50MG VIAL IV ONE (07:08)
[2021-10-09] MEDS ORDERED: MIDAZOLAM HCL 1 MG/ML 2ML VIAL ONE ×3 (08:00→15:23)
[2021-10-09] MEDS ORDERED: FENTANYL CITRATE PF 50 MCG/1 ML 2ML VIAL ONE ×2 (08:01→13:54)
[2021-10-09] MEDS ORDERED: TICAGRELOR 90 MG TABLET ONE (08:54)
[2021-10-09] MEDS ORDERED: ASPIRIN 325MG EC TAB PO ONE (08:55)
[2021-10-09] MEDS: PREGABALIN 25 MG CAP PO SCH (09:00)
[2021-10-09] MEDS: METOPROLOL TARTRATE 25 MG TAB PO SCH ×2 (09:00→21:25)
[2021-10-09] MEDS: BRIMONIDINE TARTRATE 0.2% 5 ML BOTTLE OD SCH ×2 (09:00→21:29)
[2021-10-09] MEDS: LATANOPROST 2.5 ML DROPS OP SCH ×2 (09:00→21:28)
[2021-10-09] MEDS: Vitamin B Complex/Vit C/Folic Acid PO SCH (09:00)
[2021-10-09] MEDS: TIMOLOL MALEATE 0.5% 5 ML BOTTLE OD SCH ×2 (09:00→21:29)
[2021-10-09] MEDS ORDERED: PROPOFOL 10 MG/ML 20ML VIAL IV ONE (13:53)
[2021-10-09] MEDS ORDERED: BUPIVACAINE/PF 0.25% 30ML VIAL IJ ONE (14:24)
[2021-10-09] MEDS ORDERED: LIDOCAINE HCL 1% 20 ML VIAL ONE (14:24)
[2021-10-09] MEDS ORDERED: BUPIVACAINE/PF 0.5% 30ML VIAL ONE (14:27)
[2021-10-09] MEDS ORDERED: MEPERIDINE-PF 25 MG/ML SYG ONE (15:23)
[2021-10-09] MEDS ORDERED: TICAGRELOR 90 MG TABLET PO SCH (21:00)
[2021-10-09] MEDS: ACETAMINOPHEN 325 MG TAB PO PRN (21:27)
[2021-10-09] MEDS: ATORVASTATIN 40 MG TABLET PO SCH (21:27)
[2021-10-10] VITALS (21 sets, daily range): BP systolic 108–176; BP diastolic 49–78
[2021-10-10 05:10] LABS: HEMATOCRIT 33.3 % (42-54); MEAN CORPUSCULAR HEMOGLOBIN 29.1 pg (27.0-33.0); MEAN CORPUSCULAR VOLUME 88.1 fL (79-99); RED BLOOD CELL COUNT(AUTO) 3.78 MIL/uL (4.50-6.20); RED CELL DISTRIBUTION WIDTH 13.1 % (11.0-15.5); WHITE BLOOD COUNT (AUTO) 8.4 K/uL (4.8-10.8)
[2021-10-10 05:18] LABS: CREATININE 4.5 mg/dL (0.5-1.5); POTASSIUM 3.9 mmol/L (3.5-5.1)
[2021-10-10] MEDS: ACETAMINOPHEN 325 MG TAB PO PRN ×2 (05:23→21:11)
[2021-10-10] MEDS: INSULIN R PO SS1 SQ SCH ×4 (06:38→21:00)
[2021-10-10] MEDS: METOPROLOL TARTRATE 25 MG TAB PO SCH ×2 (09:00→21:04)
[2021-10-10] MEDS: Vitamin B Complex/Vit C/Folic Acid PO SCH (10:02)
[2021-10-10] MEDS: ASPIRIN 81MG CHEW TAB PO SCH (10:02)
[2021-10-10] MEDS: CLOPIDOGREL 75MG TAB PO SCH (10:03)
[2021-10-10] MEDS: PREGABALIN 25 MG CAP PO SCH (10:03)
[2021-10-10] MEDS: ZOSYN 3.375GM+NS 50ML 50 ML IV SCH ×2 (10:04→21:04)
[2021-10-10] MEDS: LATANOPROST 2.5 ML DROPS OP SCH ×2 (10:08→21:17)
[2021-10-10] MEDS: TIMOLOL MALEATE 0.5% 5 ML BOTTLE OD SCH ×2 (10:09→21:17)
[2021-10-10] MEDS: BRIMONIDINE TARTRATE 0.2% 5 ML BOTTLE OD SCH ×2 (10:09→21:16)
[2021-10-10] MEDS: VANCOMYCIN 1G/250ML KIT 250 ML IV SCH (18:25)
[2021-10-10] MEDS: 0.9% NACL 250ML 250 ML IV SCH (18:25)
[2021-10-10] MEDS: ATORVASTATIN 40 MG TABLET PO SCH (21:04)
[2021-10-10] MEDS: ONDANSETRON 4MG INJ IVP PRN (21:09)
[2021-10-11 00:09] VITALS: BP 120/66
[2021-10-11 04:42] VITALS: BP 103/48
[2021-10-11] MEDS: INSULIN R PO SS1 SQ SCH ×2 (06:14→11:30)
[2021-10-11 08:00] VITALS: BP 104/50
[2021-10-11] MEDS: ZOSYN 3.375GM+NS 50ML 50 ML IV SCH (08:52)
[2021-10-11] MEDS: PREGABALIN 25 MG CAP PO SCH (08:54)
[2021-10-11] MEDS: CLOPIDOGREL 75MG TAB PO SCH (08:54)
[2021-10-11] MEDS: Vitamin B Complex/Vit C/Folic Acid PO SCH (08:54)
[2021-10-11] MEDS: ASPIRIN 81MG CHEW TAB PO SCH (08:54)
[2021-10-11] MEDS: BRIMONIDINE TARTRATE 0.2% 5 ML BOTTLE OD SCH (08:55)
[2021-10-11] MEDS: LATANOPROST 2.5 ML DROPS OP SCH (08:55)
[2021-10-11] MEDS: TIMOLOL MALEATE 0.5% 5 ML BOTTLE OD SCH (08:55)
[2021-10-11 12:14] VITALS: BP 111/50
[2021-10-12] MEDS ORDERED: VANCOMYCIN 1G/250ML KIT 250 ML IV SCH (15:00)
== END 2021-10-11 15:20 | disposition home or self-care (01) | DRG 239 ==
LOC: EDH 20:35 → EDHIP 22:35 → 3DH 10-05 21:33
PROVIDERS: ADMIT Internal Medicine Infectious Disease; ATTEND Internal Medicine Infectious Disease
PROC: 5A1D70Z Performance of Urinary Filtration, Intermittent, Less than 6 Hours Per Day (ICD-10-PCS; 2021-10-08)
PROC: 0Y6N0ZF Detachment at Left Foot, Partial 5th Ray, Open Approach (ICD-10-PCS; 2021-10-09)
PROC: 047L34Z Dilation of Left Femoral Artery with Drug-eluting Intraluminal Device, Percutaneous Approach (ICD-10-PCS; principal; 2021-10-10)
PROC: B41D1ZZ Fluoroscopy of Aorta and Bilateral Lower Extremity Arteries using Low Osmolar Contrast (ICD-10-PCS; 2021-10-10)
PROC: B41G1ZZ Fluoroscopy of Left Lower Extremity Arteries using Low Osmolar Contrast (ICD-10-PCS; 2021-10-10)
PROC: 5A1D70Z Performance of Urinary Filtration, Intermittent, Less than 6 Hours Per Day (ICD-10-PCS; 2021-10-10)
DX: E10.52 Type 1 diabetes mellitus with diabetic peripheral angiopathy with gangrene (principal); N18.6 End stage renal disease; M86.8X7 Other osteomyelitis, ankle and foot; L03.116 Cellulitis of left lower limb; I12.0 Hypertensive chronic kidney disease with stage 5 chronic kidney disease or end stage renal disease; E10.69 Type 1 diabetes mellitus with other specified complication; E10.621 Type 1 diabetes mellitus with foot ulcer; E10.22 Type 1 diabetes mellitus with diabetic chronic kidney disease; Z20.822 Contact with and (suspected) exposure to COVID-19; E78.00 Pure hypercholesterolemia, unspecified; E03.9 Hypothyroidism, unspecified; I25.10 Atherosclerotic heart disease of native coronary artery without angina pectoris; M14.679 Charcot's joint, unspecified ankle and foot; I34.0 Nonrheumatic mitral (valve) insufficiency; E78.5 Hyperlipidemia, unspecified; L97.529 Non-pressure chronic ulcer of other part of left foot with unspecified severity; R53.81 Other malaise; E66.9 Obesity, unspecified; Z68.24 Body mass index [BMI] 24.0-24.9, adult; Z99.2 Dependence on renal dialysis; Z89.511 Acquired absence of right leg below knee; Z79.84 Long term (current) use of oral hypoglycemic drugs; Z79.02 Long term (current) use of antithrombotics/antiplatelets; Z86.73 Personal history of transient ischemic attack (TIA), and cerebral infarction without residual deficits; Z83.3 Family history of diabetes mellitus; Z82.3 Family history of stroke; Z81.1 Family history of alcohol abuse and dependence; Z80.0 Family history of malignant neoplasm of digestive organs; Z82.49 Family history of ischemic heart disease and other diseases of the circulatory system
CPT/HCPCS: 36415; 37226; 73630; 73700; 73718; 75710; 80048; 80053; 80202; 82948; 83036; 83605; 83735; 84100; 85025; 85027; 85347; 85610; 85730; 86704; 86706; 87040; 87070; 87076; 87077; 87186; 87205; 87340; 87635; 88305; 88307; 88311; 90935; 93005; 93926; 93971; 99156; 99157; C1760; C1769; C1893; C1894; G0378; J1200; J1644; J2175; J2250; J2405; J2543; J2704; J3010; J3370; J3490; J7030; J7050; Q9967

== ENCOUNTER 2021-10-29 15:38 | Emergency (ER) | payer MEDICARE ==
[~2021-10-29] VITALS: Ht 165.1 cm; Wt 68.0 kg
[~2021-10-29 15:38] MED LIST changes: -AEC81 PO; -CLOP75TA32 PO; +COMB5OS OD; +FOLI1TAB61 PO; -FURO40TA5 PO; +LATA7.5D OP; +METO25TA6 PO; -PREG100C55 PO; +PREG50CA63 PO; -TAMS-1 PO
[2021-10-29 16:23] LABS: BASOPHILS % (AUTO) 1.9 % (0.0-5.0); EOSINOPHILS % (AUTO) 2.3 % (0.0-8.0); HEMATOCRIT 33.7 % (42-54); LYMPHOCYTES % (AUTO) 12.1 % (21.0-51.0); MEAN CORPUSCULAR HEMOGLOBIN 29.3 pg (27.0-33.0); MEAN CORPUSCULAR HGB CONC 30.6 g/dL (32.0-36.0); MEAN CORPUSCULAR VOLUME 95.7 fL (79-99); NEUTROPHILS % (AUTO) 75.9 % (40.0-77.0); PLATELET COUNT (AUTO) 170 K/uL (130-400); RED BLOOD CELL COUNT(AUTO) 3.52 MIL/uL (4.50-6.20); RED CELL DISTRIBUTION WIDTH 13.5 % (11.0-15.5); WHITE BLOOD COUNT (AUTO) 7.4 K/uL (4.8-10.8)
[2021-10-29 16:41] LABS: CREATININE 3.4 mg/dL (0.5-1.5)
[2021-10-29 16:46] LABS: ALBUMIN 3.4 g/dL (3.5-5.0); BILIRUBIN,TOTAL 0.3 mg/dL (0.2-1.0); TOTAL PROTEIN, SERUM 7.6 g/dL (6.0-8.3)
[2021-10-29] MEDS ORDERED: HYDROCODONE/ACETAMINOPHEN 5/325 MG TAB PO ONE (17:00)
[2021-10-29] MEDS: HYDROCODONE/ACETAMINOPHEN 5/325 MG TAB ONE ×2 (17:13→18:24)
[2021-10-29] MEDS ORDERED: HYDROCODONE/ACETAMINOPHEN 5/325 MG TAB ONE (18:22)
[2021-10-29 19:35] VITALS: BP 171/80
[2021-10-29] MEDS ORDERED: ACET1TAB25 PO (19:35)
== END 2021-10-29 20:06 | disposition home or self-care (01) ==
LOC: EDH 15:38
DX: I12.0 Hypertensive chronic kidney disease with stage 5 chronic kidney disease or end stage renal disease (principal); R51.9 Headache, unspecified; E11.22 Type 2 diabetes mellitus with diabetic chronic kidney disease; N18.6 End stage renal disease; E78.00 Pure hypercholesterolemia, unspecified; Z79.899 Other long term (current) drug therapy
CPT/HCPCS: 36415; 70450; 80053; 85025; 93005

== ENCOUNTER 2021-11-16 04:13 | Inpatient (IN) | payer MEDICARE ==
[~2021-11-16] VITALS: Ht 165.1 cm; Wt 73.1 kg
[2021-11-16] VITALS (12 sets, daily range): BP systolic 116–156; BP diastolic 67–93
[~2021-11-16 04:13] MED LIST changes: +ACET1TAB25 PO
[2021-11-16 04:37] LABS: ABG BASE EXCESS -2.6 mmol/L (-2.0-3.0); ABG HCO3 22.6 mmol/L (21.0-28.0); ABG PCO2 41 mmHg (35-48)
[2021-11-16 04:42] LABS: BASOPHILS % (AUTO) 1.1 % (0.0-5.0); EOSINOPHILS % (AUTO) 2.1 % (0.0-8.0); HEMATOCRIT 32.6 % (42-54); MEAN CORPUSCULAR HEMOGLOBIN 29.5 pg (27.0-33.0); MEAN CORPUSCULAR HGB CONC 32.2 g/dL (32.0-36.0); MEAN CORPUSCULAR VOLUME 91.6 fL (79-99); MONOCYTES % (AUTO) 5.3 % (3.0-13.0); NEUTROPHILS % (AUTO) 81.2 % (40.0-77.0); PLATELET COUNT (AUTO) 163 K/uL (130-400); RED BLOOD CELL COUNT(AUTO) 3.56 MIL/uL (4.50-6.20); RED CELL DISTRIBUTION WIDTH 14.4 % (11.0-15.5); WHITE BLOOD COUNT (AUTO) 9.8 K/uL (4.8-10.8)
[2021-11-16 05:11] LABS: ALBUMIN 3.3 g/dL (3.5-5.0); BILIRUBIN,TOTAL 0.3 mg/dL (0.2-1.0); CREATININE 6.4 mg/dL (0.5-1.5); POTASSIUM 4.2 mmol/L (3.5-5.1); TOTAL PROTEIN, SERUM 7.2 g/dL (6.0-8.3)
[2021-11-16 05:28] LABS: B-TYPE NATRIURETIC PEPTIDE 1220 pg/mL (0-100)
[2021-11-16 06:50] LABS: INR 1.02 (0.85-1.15); PROTHROMBIN TIME 11.1 SEC (9.6-11.6)
[2021-11-16 06:51] LABS: PARTIAL THROMBOPLASTIN TIME 28.5 SEC (26.3-35.5)
[2021-11-16] MEDS: ASPIRIN 81 MG EC TAB PO SCH (08:53)
[2021-11-16] MEDS: ENOXAPARIN SODIUM 40 MG/0.4 ML SYRINGE SQ SCH (08:54)
[2021-11-16 12:06] LABS: CREATININE 3.4 mg/dL (0.5-1.5); POTASSIUM 3.2 mmol/L (3.5-5.1)
[2021-11-16] MEDS: METOPROLOL TARTRATE 50 MG TAB PO SCH ×2 (12:15→20:29)
[2021-11-16] MEDS: ATORVASTATIN 40 MG TABLET PO SCH (20:29)
[2021-11-17] VITALS (7 sets, daily range): BP systolic 104–141; BP diastolic 51–74
[2021-11-17 04:33] LABS: HEMATOCRIT 28.1 % (42-54); MEAN CORPUSCULAR HEMOGLOBIN 28.9 pg (27.0-33.0); MEAN CORPUSCULAR HGB CONC 31.7 g/dL (32.0-36.0); MEAN CORPUSCULAR VOLUME 91.2 fL (79-99); RED BLOOD CELL COUNT(AUTO) 3.08 MIL/uL (4.50-6.20); RED CELL DISTRIBUTION WIDTH 14.5 % (11.0-15.5); WHITE BLOOD COUNT (AUTO) 7.9 K/uL (4.8-10.8)
[2021-11-17 04:50] LABS: CREATININE 5.2 mg/dL (0.5-1.5); MAGNESIUM 2.2 mg/dL (1.80-2.40); POTASSIUM 4.1 mmol/L (3.5-5.1)
[2021-11-17 04:58] LABS: HEMOGLOBIN A1C 6.1 % (4.0-6.0)
[2021-11-17] MEDS: ENOXAPARIN SODIUM 40 MG/0.4 ML SYRINGE SQ SCH (08:52)
[2021-11-17] MEDS: ASPIRIN 81 MG EC TAB PO SCH (08:52)
[2021-11-17] MEDS: METOPROLOL TARTRATE 50 MG TAB PO SCH ×2 (08:52→20:29)
[2021-11-17] MEDS ORDERED: 0.9%NACL 1000ML 1,000 ML IV SCH (13:00)
[2021-11-17] MEDS ORDERED: DiphenhydrAMINE HCL 50 MG/ML VIAL IVP PRN (13:00)
[2021-11-17] MEDS: ATORVASTATIN 40 MG TABLET PO SCH (20:29)
[2021-11-18 00:44] VITALS: BP 131/66
[2021-11-18 04:36] VITALS: BP 121/64
[2021-11-18 04:49] LABS: HEMATOCRIT 27.9 % (42-54); MEAN CORPUSCULAR HEMOGLOBIN 29.3 pg (27.0-33.0); MEAN CORPUSCULAR HGB CONC 31.9 g/dL (32.0-36.0); MEAN CORPUSCULAR VOLUME 91.8 fL (79-99); RED BLOOD CELL COUNT(AUTO) 3.04 MIL/uL (4.50-6.20); RED CELL DISTRIBUTION WIDTH 14.3 % (11.0-15.5); WHITE BLOOD COUNT (AUTO) 6.3 K/uL (4.8-10.8)
[2021-11-18 05:04] LABS: CREATININE 5.7 mg/dL (0.5-1.5); POTASSIUM 4.4 mmol/L (3.5-5.1)
[2021-11-18] MEDS: Vitamin B Complex/Vit C/Folic Acid PO SCH (07:53)
[2021-11-18] MEDS: ASPIRIN 81 MG EC TAB PO SCH (07:53)
[2021-11-18] MEDS: METOPROLOL TARTRATE 50 MG TAB PO SCH ×2 (07:53→21:20)
[2021-11-18] MEDS: ENOXAPARIN SODIUM 40 MG/0.4 ML SYRINGE SQ SCH (07:54)
[2021-11-18 08:00] VITALS: BP 154/78
[2021-11-18] MEDS: MUPIROCIN OINTMENT 22 GM TUBE TP SCH ×2 (10:22→21:21)
[2021-11-18 12:00] VITALS: BP 129/72
[2021-11-18 16:00] VITALS: BP 138/73
[2021-11-18 20:32] VITALS: BP 105/69
[2021-11-18] MEDS: TIMOLOL OD SCH (21:00)
[2021-11-18] MEDS: BRIMONIDINE TARTRATE OD SCH (21:00)
[2021-11-18] MEDS: LATANOPROST 2.5 ML DROPS OD SCH (21:21)
[2021-11-18] MEDS: ATORVASTATIN 40 MG TABLET PO SCH (21:21)
[2021-11-19] VITALS (29 sets, daily range): BP systolic 121–181; BP diastolic 59–88
[2021-11-19 03:45] LABS: HEMATOCRIT 27.8 % (42-54); MEAN CORPUSCULAR HEMOGLOBIN 28.6 pg (27.0-33.0); MEAN CORPUSCULAR VOLUME 89.4 fL (79-99); RED BLOOD CELL COUNT(AUTO) 3.11 MIL/uL (4.50-6.20); RED CELL DISTRIBUTION WIDTH 13.9 % (11.0-15.5); WHITE BLOOD COUNT (AUTO) 6.8 K/uL (4.8-10.8)
[2021-11-19 03:54] LABS: INR 1.08 (0.85-1.15); PROTHROMBIN TIME 11.7 SEC (9.6-11.6)
[2021-11-19 03:55] LABS: CREATININE 5.7 mg/dL (0.5-1.5); MAGNESIUM 2.4 mg/dL (1.80-2.40); PARTIAL THROMBOPLASTIN TIME 32.5 SEC (26.3-35.5); POTASSIUM 4.2 mmol/L (3.5-5.1)
[2021-11-19] MEDS ORDERED: HEPARIN 1,000 UNIT VIAL ONE (08:17)
[2021-11-19] MEDS ORDERED: HEPARIN 10,000 UNIT/10ML (1,000 UNIT/ML) VIAL ONE (08:17)
[2021-11-19] MEDS ORDERED: BIVALIRUDIN 250 MG/VIAL IV ONE (08:17)
[2021-11-19] MEDS ORDERED: NITROGLYCERIN 50MG VIAL IV ONE (08:17)
[2021-11-19] MEDS ORDERED: MIDAZOLAM HCL 1 MG/ML 2ML VIAL ONE (08:17)
[2021-11-19] MEDS ORDERED: FENTANYL CITRATE PF 50 MCG/1 ML 2ML VIAL ONE (08:18)
[2021-11-19] MEDS ORDERED: IOHEXOL-350 50ML VIAL IV ONE (08:24)
[2021-11-19] MEDS ORDERED: IOHEXOL 350 MG/ML 100ML INFUS..BTL IV ONE (08:24)
[2021-11-19] MEDS: ASPIRIN 81 MG EC TAB PO SCH (09:00)
[2021-11-19] MEDS: BRIMONIDINE TARTRATE OD SCH ×2 (09:00→20:02)
[2021-11-19] MEDS: Vitamin B Complex/Vit C/Folic Acid PO SCH (09:00)
[2021-11-19] MEDS: TIMOLOL OD SCH ×2 (09:00→20:02)
[2021-11-19] MEDS ORDERED: 0.9%NACL 1000ML 1,000 ML IV SCH (09:30)
[2021-11-19] MEDS: MUPIROCIN OINTMENT 22 GM TUBE TP SCH ×2 (11:00→20:01)
[2021-11-19] MEDS: METOPROLOL TARTRATE 50 MG TAB PO SCH ×2 (11:37→19:53)
[2021-11-19] MEDS ORDERED: CLONIDINE HCL 0.1 MG TABLET PO PRN (13:00)
[2021-11-19] MEDS: CEFEPIME HCL 2 GM VIAL IVP SCH (15:09)
[2021-11-19] MEDS ORDERED: ACETAMINOPHEN 325 MG TAB PO PRN (19:30)
[2021-11-19] MEDS ORDERED: MORPHINE 2 MG SYG IVP PRN (19:30)
[2021-11-19] MEDS: ATORVASTATIN 40 MG TABLET PO SCH (19:53)
[2021-11-19] MEDS: LATANOPROST 2.5 ML DROPS OD SCH (20:04)
[2021-11-19] MEDS: EPOETIN ALFA-EPBX (ESRD) 10,000 UNIT/ML VIAL SQ SCH (21:02)
[2021-11-20] VITALS: BP 127/68
[2021-11-20 04:00] VITALS: BP 133/70
[2021-11-20 04:12] LABS: EOSINOPHILS % (AUTO) 2.4 % (0.0-8.0); HEMATOCRIT 30.5 % (42-54); LYMPHOCYTES % (AUTO) 21.5 % (21.0-51.0); MEAN CORPUSCULAR HEMOGLOBIN 29.2 pg (27.0-33.0); MEAN CORPUSCULAR HGB CONC 33.1 g/dL (32.0-36.0); MEAN CORPUSCULAR VOLUME 88.2 fL (79-99); MONOCYTES % (AUTO) 11.5 % (3.0-13.0); NEUTROPHILS % (AUTO) 62.2 % (40.0-77.0); PLATELET COUNT (AUTO) 198 K/uL (130-400); RED BLOOD CELL COUNT(AUTO) 3.46 MIL/uL (4.50-6.20); RED CELL DISTRIBUTION WIDTH 13.5 % (11.0-15.5); WHITE BLOOD COUNT (AUTO) 4.6 K/uL (4.8-10.8)
[2021-11-20 04:31] LABS: MAGNESIUM 2.1 mg/dL (1.80-2.40)
[2021-11-20 07:25] VITALS: BP 156/75
[2021-11-20] MEDS: METOPROLOL TARTRATE 50 MG TAB PO SCH ×2 (08:36→21:36)
[2021-11-20] MEDS: MUPIROCIN OINTMENT 22 GM TUBE TP SCH ×2 (08:37→21:41)
[2021-11-20] MEDS: Vitamin B Complex/Vit C/Folic Acid PO SCH (08:37)
[2021-11-20] MEDS: ASPIRIN 81 MG EC TAB PO SCH (08:37)
[2021-11-20] MEDS: BRIMONIDINE TARTRATE OD SCH ×2 (09:00→21:00)
[2021-11-20] MEDS: TIMOLOL OD SCH ×2 (09:00→21:00)
[2021-11-20 11:25] VITALS: BP 153/74
[2021-11-20 15:20] VITALS: BP 152/73
[2021-11-20] MEDS: CEFEPIME HCL 2 GM VIAL IVP SCH (17:06)
[2021-11-20 20:06] VITALS: BP 137/65
[2021-11-20] MEDS: ATORVASTATIN 40 MG TABLET PO SCH (21:36)
[2021-11-20] MEDS: LATANOPROST 2.5 ML DROPS OD SCH (21:38)
[2021-11-21] VITALS (22 sets, daily range): BP systolic 91–169; BP diastolic 51–74
[2021-11-21] MEDS: BRIMONIDINE TARTRATE OD SCH ×2 (09:00→22:23)
[2021-11-21] MEDS: TIMOLOL OD SCH ×2 (09:00→22:23)
[2021-11-21] MEDS: Vitamin B Complex/Vit C/Folic Acid PO SCH (09:37)
[2021-11-21] MEDS: MUPIROCIN OINTMENT 22 GM TUBE TP SCH ×2 (09:38→22:17)
[2021-11-21] MEDS: EPOETIN ALFA-EPBX (ESRD) 10,000 UNIT/ML VIAL SQ SCH (12:56)
[2021-11-21] MEDS: METOPROLOL TARTRATE 50 MG TAB PO SCH ×2 (17:02→22:12)
[2021-11-21] MEDS: ASPIRIN 81 MG EC TAB PO SCH (17:03)
[2021-11-21] MEDS: ZOSYN 3.375GM +NS 50ML IV SCH (17:04)
[2021-11-21] MEDS: ATORVASTATIN 40 MG TABLET PO SCH (22:12)
[2021-11-21] MEDS: LATANOPROST 2.5 ML DROPS OD SCH (22:24)
[2021-11-22] VITALS (29 sets, daily range): BP systolic 66–213; BP diastolic 31–73
[2021-11-22] MEDS: ZOSYN 3.375GM +NS 50ML IV SCH ×2 (04:16→11:34)
[2021-11-22 04:37] LABS: HEMATOCRIT 34.5 % (42-54); MEAN CORPUSCULAR HEMOGLOBIN 28.3 pg (27.0-33.0); MEAN CORPUSCULAR HGB CONC 31.9 g/dL (32.0-36.0); MEAN CORPUSCULAR VOLUME 88.7 fL (79-99); RED BLOOD CELL COUNT(AUTO) 3.89 MIL/uL (4.50-6.20); RED CELL DISTRIBUTION WIDTH 13.8 % (11.0-15.5); WHITE BLOOD COUNT (AUTO) 6.7 K/uL (4.8-10.8)
[2021-11-22 04:48] LABS: INR 1.08 (0.85-1.15); PROTHROMBIN TIME 11.7 SEC (9.6-11.6)
[2021-11-22 04:49] LABS: PARTIAL THROMBOPLASTIN TIME 29.8 SEC (26.3-35.5)
[2021-11-22 04:55] LABS: ALBUMIN 3.3 g/dL (3.5-5.0); BILIRUBIN,TOTAL 0.3 mg/dL (0.2-1.0); CREATININE 4.6 mg/dL (0.5-1.5); POTASSIUM 3.8 mmol/L (3.5-5.1); TOTAL PROTEIN, SERUM 7.7 g/dL (6.0-8.3)
[2021-11-22] MEDS ORDERED: AMINOCAPROIC ACID 5,000MG VIAL 15,000 MG in 0.9% NACL 500ML IV.SOLN 420 ML IV PRN (08:00)
[2021-11-22] MEDS ORDERED: EPINEPHRINE PF 1MG AMP 10 MG in 0.9% NACL 250ML 240 ML IV PRN (08:00)
[2021-11-22] MEDS ORDERED: NOREPINEPHRINE BITARTRATE 8 MG in DEXTROSE 5%-WATER 250 ML IV PRN (08:00)
[2021-11-22] MEDS: BRIMONIDINE TARTRATE OD SCH ×2 (09:00→21:00)
[2021-11-22] MEDS: Vitamin B Complex/Vit C/Folic Acid PO SCH (09:00)
[2021-11-22] MEDS: TIMOLOL OD SCH ×2 (09:00→21:00)
[2021-11-22] MEDS: ASPIRIN 81 MG EC TAB PO SCH (09:00)
[2021-11-22] MEDS: MUPIROCIN OINTMENT 22 GM TUBE TP SCH ×2 (09:00→20:51)
[2021-11-22] MEDS: METOPROLOL TARTRATE 50 MG TAB PO SCH (09:00)
[2021-11-22] MEDS ORDERED: 0.9%NACL 1000ML 1,000 ML IV ONE (12:10)
[2021-11-22] MEDS ORDERED: OCTYL 2-CYANOACRYLATE 1 EACH TP ONE (12:43)
[2021-11-22] MEDS ORDERED: CEFAZOLIN SODIUM 1 GM VIAL ONE ×2 (12:43→13:54)
[2021-11-22] MEDS ORDERED: PAPAVERINE HCL 30 MG/ML 2ML VIAL ONE (12:43)
[2021-11-22] MEDS ORDERED: HEPARIN 10,000 UNIT/10ML (1,000 UNIT/ML) VIAL ONE (13:31)
[2021-11-22] MEDS ORDERED: AMINOCAPROIC ACID 5,000MG VIAL ONE (13:31)
[2021-11-22] MEDS ORDERED: EPINEPHRINE PF 1MG AMP ONE (13:31)
[2021-11-22] MEDS ORDERED: ESMOLOL HCL 10 MG/ML 10 ML VIAL ONE (13:31)
[2021-11-22] MEDS ORDERED: PROTAMINE SULFATE 10 MG/ML 25ML VIAL IV ONE (13:31)
[2021-11-22] MEDS ORDERED: PROPOFOL 10 MG/ML 20ML VIAL IV ONE (13:31)
[2021-11-22] MEDS ORDERED: LIDOCAINE PF 100MG/5ML (2%) SYRINGE 5ML ONE (13:31)
[2021-11-22] MEDS ORDERED: SODIUM BICARB 50MEQ 50ML VIAL 100 ML ONE (13:31)
[2021-11-22] MEDS ORDERED: NOREPINEPHRINE BITARTRATE 1 MG/1 ML ML IV ONE (13:31)
[2021-11-22] MEDS ORDERED: ROCURONIUM 10MG/1ML SYR 10 MG/ML ML ONE ×2 (13:32→16:42)
[2021-11-22] MEDS ORDERED: KETAMINE 50MG/ML SYRINGE 50 MG/ML DISP.SYRIN IV ONE (13:32)
[2021-11-22] MEDS ORDERED: FENTANYL CITRATE PF 50 MCG/1 ML 20ML VIAL IJ ONE (13:32)
[2021-11-22] MEDS ORDERED: MIDAZOLAM HCL 1 MG/ML 2ML VIAL ONE (13:32)
[2021-11-22] MEDS ORDERED: CEFAZOLIN SODIUM 2 GM VIAL IV ONE (13:45)
[2021-11-22 14:11] LABS: ABG BASE EXCESS 0.3 mmol/L (-2.0-3.0); ABG HCO3 24.1 mmol/L (21.0-28.0); ABG OXYGEN SATURATION 99.1 % (95.0-99.0); ABG PCO2 36 mmHg (35-48)
[2021-11-22] MEDS ORDERED: POTASSIUM PHOS 15 mMOL+NS250ML 250 ML IV PRN (16:00)
[2021-11-22] MEDS ORDERED: ACETAMINOPHEN 650 MG SUPPOSITORY RC PRN (16:00)
[2021-11-22] MEDS ORDERED: DEXTROSE 50%-WATER 50 ML DISP.SYRIN IV PRN (16:00)
[2021-11-22] MEDS ORDERED: 0.9%NACL 1000ML 1,000 ML IV SCH (16:00)
[2021-11-22] MEDS ORDERED: AMINOCAPROIC ACID 5,000MG VIAL 15,000 MG in 0.9% NACL 250ML 250 ML IV SCH (16:00)
[2021-11-22] MEDS ORDERED: NOREPINEPHRIN 4MG/NS 250ML 250 ML IV PRN (16:00)
[2021-11-22] MEDS ORDERED: NITROGLYCERIN 50MG/D5W 250ML 250 BOT IV SCH (16:00)
[2021-11-22] MEDS ORDERED: GLUCAGON 1MG KIT 1 MG ML IM PRN (16:00)
[2021-11-22] MEDS ORDERED: PROPOFOL 1000 MG/100 ML 100 ML IV PRN (16:00)
[2021-11-22] MEDS ORDERED: TRAMADOL HCL 50 MG TABLET PO PRN (16:00)
[2021-11-22] MEDS ORDERED: 0.9% NACL 500ML IV.SOLN 500 ML IV SCH (16:00)
[2021-11-22] MEDS ORDERED: INSULIN REGULAR, HUMAN 3ML 100 UNIT in 0.9%NACL 100ML 99 ML IV SCH ×2 (16:00)
[2021-11-22] MEDS ORDERED: MORPHINE 2 MG SYG IV PRN ×2 (16:00)
[2021-11-22] MEDS ORDERED: 0.9%NACL 10ML VIAL IVP PRN (16:00)
[2021-11-22] MEDS ORDERED: ALBUMIN (HUMAN) 5% 250 ML IV PRN (16:00)
[2021-11-22] MEDS ORDERED: EPINEPHRINE PF 1MG AMP 10 MG in DEXTROSE 5%-WATER 250 ML IV PRN (16:00)
[2021-11-22] MEDS ORDERED: MAGNESIUM 2GM PREMIX 50ML 50 ML IV PRN (16:00)
[2021-11-22 16:35] LABS: ABG BASE EXCESS -10.4 mmol/L (-2.0-3.0); ABG HCO3 15.5 mmol/L (21.0-28.0); ABG OXYGEN SATURATION 99.4 % (95.0-99.0); ABG PCO2 35 mmHg (35-48)
[2021-11-22 17:17] LABS: ABG BASE EXCESS -0.6 mmol/L (-2.0-3.0); ABG HCO3 23.6 mmol/L (21.0-28.0); ABG OXYGEN SATURATION 96.2 % (95.0-99.0); ABG PCO2 37 mmHg (35-48)
[2021-11-22 17:37] LABS: HEMATOCRIT 28.6 % (42-54); MEAN CORPUSCULAR HEMOGLOBIN 29.1 pg (27.0-33.0); MEAN CORPUSCULAR HGB CONC 32.9 g/dL (32.0-36.0); MEAN CORPUSCULAR VOLUME 88.5 fL (79-99); RED BLOOD CELL COUNT(AUTO) 3.23 MIL/uL (4.50-6.20); RED CELL DISTRIBUTION WIDTH 13.7 % (11.0-15.5); WHITE BLOOD COUNT (AUTO) 22.9 K/uL (4.8-10.8)
[2021-11-22 17:49] LABS: INR 1.47 (0.85-1.15); PROTHROMBIN TIME 15.5 SEC (9.6-11.6)
[2021-11-22 17:51] LABS: PARTIAL THROMBOPLASTIN TIME 23.8 SEC (26.3-35.5)
[2021-11-22 17:54] LABS: CREATININE 4.8 mg/dL (0.5-1.5); MAGNESIUM 1.6 mg/dL (1.80-2.40); PHOSPHORUS 5.9 mg/dL (2.5-4.9); POTASSIUM 3.7 mmol/L (3.5-5.1)
[2021-11-22] MEDS: POTASSIUM CHLORIDE 20MEQ/100ML 100 ML IV PRN ×3 (17:54→23:18)
[2021-11-22] MEDS: SODIUM BICARB 50MEQ 50ML VIAL IV PRN ×2 (18:05→19:28)
[2021-11-22] MEDS: CALCIUM GLUC 1GM 1 GM in 0.9%NACL 50ML 50 ML IV PRN ×4 (18:05→22:23)
[2021-11-22 18:10] LABS: ABG BASE EXCESS -2.5 mmol/L (-2.0-3.0); ABG HCO3 21.4 mmol/L (21.0-28.0); ABG OXYGEN SATURATION 96.7 % (95.0-99.0); ABG PCO2 34 mmHg (35-48)
[2021-11-22 19:17] LABS: ABG BASE EXCESS -0.6 mmol/L (-2.0-3.0); ABG HCO3 22.8 mmol/L (21.0-28.0); ABG PCO2 33 mmHg (35-48)
[2021-11-22 20:08] LABS: ABG BASE EXCESS 1.1 mmol/L (-2.0-3.0); ABG HCO3 23.8 mmol/L (21.0-28.0); ABG OXYGEN SATURATION 97.2 % (95.0-99.0); ABG PCO2 31 mmHg (35-48)
[2021-11-22] MEDS: ATORVASTATIN 40 MG TABLET PO SCH (20:38)
[2021-11-22] MEDS: LATANOPROST 2.5 ML DROPS OD SCH (21:00)
[2021-11-22 21:06] LABS: ABG BASE EXCESS 0.1 mmol/L (-2.0-3.0); ABG HCO3 22.7 mmol/L (21.0-28.0); ABG OXYGEN SATURATION 97.9 % (95.0-99.0); ABG PCO2 30 mmHg (35-48)
[2021-11-22] MEDS: CEFAZOLIN SODIUM 1 GM VIAL IV SCH (22:16)
[2021-11-22 22:21] LABS: ABG BASE EXCESS 0.9 mmol/L (-2.0-3.0); ABG HCO3 23.3 mmol/L (21.0-28.0); ABG OXYGEN SATURATION 97.5 % (95.0-99.0); ABG PCO2 30 mmHg (35-48)
[2021-11-22 23:14] LABS: ABG HCO3 22.6 mmol/L (21.0-28.0); ABG OXYGEN SATURATION 96.3 % (95.0-99.0); ABG PCO2 29 mmHg (35-48)
[2021-11-22 23:38] LABS: CREATININE 5.4 mg/dL (0.5-1.5); MAGNESIUM 2.6 mg/dL (1.80-2.40); POTASSIUM 3.4 mmol/L (3.5-5.1)
[2021-11-23] VITALS (65 sets, daily range): BP systolic 79–182; BP diastolic 34–97
[2021-11-23 00:02] LABS: ABG BASE EXCESS -0.3 mmol/L (-2.0-3.0); ABG OXYGEN SATURATION 95.5 % (95.0-99.0); ABG PCO2 38 mmHg (35-48)
[2021-11-23] MEDS: ZOSYN 3.375GM +NS 50ML IV SCH ×2 (00:05→14:23)
[2021-11-23] MEDS: CALCIUM GLUC 1GM 1 GM in 0.9%NACL 50ML 50 ML IV PRN ×2 (00:08→03:28)
[2021-11-23 01:11] LABS: ABG BASE EXCESS -3.6 mmol/L (-2.0-3.0); ABG HCO3 22.5 mmol/L (21.0-28.0); ABG PCO2 46 mmHg (35-48)
[2021-11-23] MEDS: SODIUM BICARB 50MEQ 50ML VIAL IV PRN ×3 (01:18→02:19)
[2021-11-23 02:15] LABS: ABG BASE EXCESS -0.8 mmol/L (-2.0-3.0); ABG HCO3 24.4 mmol/L (21.0-28.0); ABG OXYGEN SATURATION 95.6 % (95.0-99.0); ABG PCO2 43 mmHg (35-48)
[2021-11-23 03:14] LABS: ABG HCO3 27.8 mmol/L (21.0-28.0); ABG OXYGEN SATURATION 95.5 % (95.0-99.0); ABG PCO2 44 mmHg (35-48)
[2021-11-23] MEDS: POTASSIUM CHLORIDE 20MEQ/100ML 100 ML IV PRN (03:31)
[2021-11-23] MEDS: ACETAMINOPHEN 325 MG TAB PO PRN (04:36)
[2021-11-23] MEDS: ONDANSETRON 4MG INJ IV PRN (04:36)
[2021-11-23 05:08] LABS: ABG BASE EXCESS 1.2 mmol/L (-2.0-3.0); ABG HCO3 26.3 mmol/L (21.0-28.0); ABG OXYGEN SATURATION 96.4 % (95.0-99.0); ABG PCO2 44 mmHg (35-48)
[2021-11-23] MEDS: CEFAZOLIN SODIUM 1 GM VIAL IV SCH ×2 (05:56→14:23)
[2021-11-23 06:15] LABS: HEMATOCRIT 25.5 % (42-54); MEAN CORPUSCULAR HEMOGLOBIN 28.5 pg (27.0-33.0); MEAN CORPUSCULAR HGB CONC 31.8 g/dL (32.0-36.0); MEAN CORPUSCULAR VOLUME 89.8 fL (79-99); RED BLOOD CELL COUNT(AUTO) 2.84 MIL/uL (4.50-6.20); RED CELL DISTRIBUTION WIDTH 14.4 % (11.0-15.5); WHITE BLOOD COUNT (AUTO) 13.6 K/uL (4.8-10.8)
[2021-11-23 06:28] LABS: INR 1.21 (0.85-1.15)
[2021-11-23 06:30] LABS: CREATININE 5.9 mg/dL (0.5-1.5); MAGNESIUM 2.3 mg/dL (1.80-2.40); PARTIAL THROMBOPLASTIN TIME 21.7 SEC (26.3-35.5); POTASSIUM 3.4 mmol/L (3.5-5.1)
[2021-11-23 07:20] LABS: ABG BASE EXCESS 2.8 mmol/L (-2.0-3.0); ABG HCO3 27.4 mmol/L (21.0-28.0); ABG OXYGEN SATURATION 96.6 % (95.0-99.0); ABG PCO2 42 mmHg (35-48)
[2021-11-23] MEDS: Vitamin B Complex/Vit C/Folic Acid PO SCH (09:00)
[2021-11-23] MEDS: TIMOLOL OD SCH ×2 (09:00→21:00)
[2021-11-23] MEDS: BRIMONIDINE TARTRATE OD SCH ×2 (09:00→21:00)
[2021-11-23] MEDS ORDERED: FAMOTIDINE 20MG VIAL IV SCH (09:00)
[2021-11-23] MEDS: ASPIRIN 81 MG EC TAB PO SCH (09:00)
[2021-11-23] MEDS: MUPIROCIN OINTMENT 22 GM TUBE TP SCH ×2 (09:43→21:57)
[2021-11-23 15:50] LABS: ABG BASE EXCESS 0.9 mmol/L (-2.0-3.0); ABG HCO3 25.4 mmol/L (21.0-28.0); ABG OXYGEN SATURATION 93.1 % (95.0-99.0); ABG PCO2 40 mmHg (35-48)
[2021-11-23] MEDS ORDERED: PROPOFOL 1000 MG/100 ML IV PRN (21:04)
[2021-11-23] MEDS: LATANOPROST 2.5 ML DROPS OD SCH (21:53)
[2021-11-23] MEDS: EPOETIN ALFA-EPBX (ESRD) 10,000 UNIT/ML VIAL SQ SCH (21:53)
[2021-11-23] MEDS: ATORVASTATIN 40 MG TABLET PO SCH (21:56)
[2021-11-23] MEDS: TRAMADOL HCL 50 MG TABLET PO PRN (21:59)
[2021-11-24] VITALS (36 sets, daily range): BP systolic 84–170; BP diastolic 43–94
[2021-11-24] MEDS: ZOSYN 3.375GM +NS 50ML IV SCH ×2 (00:50→12:07)
[2021-11-24] MEDS: ACETAMINOPHEN 325 MG TAB PO PRN (00:50)
[2021-11-24 06:29] LABS: HEMATOCRIT 28.9 % (42-54); MEAN CORPUSCULAR HEMOGLOBIN 29.3 pg (27.0-33.0); MEAN CORPUSCULAR HGB CONC 31.8 g/dL (32.0-36.0); RED BLOOD CELL COUNT(AUTO) 3.14 MIL/uL (4.50-6.20); RED CELL DISTRIBUTION WIDTH 14.9 % (11.0-15.5); WHITE BLOOD COUNT (AUTO) 16.7 K/uL (4.8-10.8)
[2021-11-24 06:39] LABS: CREATININE 4.4 mg/dL (0.5-1.5)
[2021-11-24] MEDS: TIMOLOL OD SCH ×2 (08:57→21:00)
[2021-11-24] MEDS: BRIMONIDINE TARTRATE OD SCH ×2 (08:57→21:00)
[2021-11-24] MEDS: MUPIROCIN OINTMENT 22 GM TUBE TP SCH ×2 (09:24→20:44)
[2021-11-24] MEDS: ASPIRIN 81 MG EC TAB PO SCH (09:24)
[2021-11-24] MEDS: FAMOTIDINE 20MG TAB PO SCH (09:24)
[2021-11-24] MEDS: Vitamin B Complex/Vit C/Folic Acid PO SCH (09:24)
[2021-11-24] MEDS ORDERED: KETOROLAC 30MG VIAL (30MG/ML) ONE (17:45)
[2021-11-24] MEDS ORDERED: KETOROLAC 30MG VIAL (30MG/ML) IV SCH (18:00)
[2021-11-24] MEDS: INSULIN HUMULIN R 100 UNIT/ML 3ML SQ SCH (19:53)
[2021-11-24] MEDS: ATORVASTATIN 40 MG TABLET PO SCH (20:43)
[2021-11-24] MEDS: LATANOPROST 2.5 ML DROPS OD SCH (20:45)
[2021-11-24] MEDS ORDERED: 0.9%NACL 50ML 50 ML IV ONE (23:18)
[2021-11-25] MEDS: ZOSYN 3.375GM +NS 50ML IV SCH ×3 (00:03→20:28)
[2021-11-25 04:32] VITALS: BP 126/56
[2021-11-25 04:34] LABS: MEAN CORPUSCULAR HEMOGLOBIN 28.3 pg (27.0-33.0); MEAN CORPUSCULAR HGB CONC 30.3 g/dL (32.0-36.0); MEAN CORPUSCULAR VOLUME 93.2 fL (79-99); PLATELET COUNT (AUTO) 148 K/uL (130-400); RED BLOOD CELL COUNT(AUTO) 3.11 MIL/uL (4.50-6.20); RED CELL DISTRIBUTION WIDTH 15.2 % (11.0-15.5); WHITE BLOOD COUNT (AUTO) 14.6 K/uL (4.8-10.8)
[2021-11-25 05:03] LABS: CREATININE 5.9 mg/dL (0.5-1.5); POTASSIUM 5.6 mmol/L (3.5-5.1)
[2021-11-25] MEDS: INSULIN HUMULIN R 100 UNIT/ML 3ML SQ SCH ×4 (06:10→20:29)
[2021-11-25 08:00] VITALS: BP 129/65
[2021-11-25] MEDS ORDERED: 0.9%NACL 50ML 50 ML IV ONE (08:01)
[2021-11-25] MEDS: Vitamin B Complex/Vit C/Folic Acid PO SCH (08:46)
[2021-11-25] MEDS: MUPIROCIN OINTMENT 22 GM TUBE TP SCH ×2 (08:46→20:32)
[2021-11-25] MEDS: ASPIRIN 81 MG EC TAB PO SCH (08:46)
[2021-11-25] MEDS: FAMOTIDINE 20MG TAB PO SCH (08:46)
[2021-11-25] MEDS: TIMOLOL OD SCH ×2 (08:47→20:40)
[2021-11-25] MEDS: BRIMONIDINE TARTRATE OD SCH ×2 (08:47→20:40)
[2021-11-25 12:00] VITALS: BP 147/69
[2021-11-25 16:00] VITALS: BP 125/62
[2021-11-25 19:30] VITALS: BP 146/76
[2021-11-25] MEDS: LATANOPROST 2.5 ML DROPS OD SCH (20:29)
[2021-11-25] MEDS: ATORVASTATIN 40 MG TABLET PO SCH (20:29)
[2021-11-25] MEDS: TRAMADOL HCL 50 MG TABLET PO PRN (20:30)
[2021-11-26] VITALS (20 sets, daily range): BP systolic 104–160; BP diastolic 70–91
[2021-11-26] MEDS: TRAMADOL HCL 50 MG TABLET PO PRN ×2 (02:31→20:20)
[2021-11-26 04:10] LABS: HEMATOCRIT 28.3 % (42-54); MEAN CORPUSCULAR HGB CONC 31.1 g/dL (32.0-36.0); MEAN CORPUSCULAR VOLUME 93.4 fL (79-99); NUCLEATED RED BLOOD CELLS 0.2 % (0.0-0.19); RED BLOOD CELL COUNT(AUTO) 3.03 MIL/uL (4.50-6.20); RED CELL DISTRIBUTION WIDTH 15.1 % (11.0-15.5); WHITE BLOOD COUNT (AUTO) 10.5 K/uL (4.8-10.8)
[2021-11-26 04:29] LABS: CREATININE 7.1 mg/dL (0.5-1.5); POTASSIUM 4.6 mmol/L (3.5-5.1)
[2021-11-26] MEDS: INSULIN HUMULIN R 100 UNIT/ML 3ML SQ SCH ×4 (06:06→20:15)
[2021-11-26] MEDS: MUPIROCIN OINTMENT 22 GM TUBE TP SCH ×2 (07:54→20:21)
[2021-11-26] MEDS: FAMOTIDINE 20MG TAB PO SCH (07:54)
[2021-11-26] MEDS: ZOSYN 3.375GM +NS 50ML IV SCH ×2 (07:54→20:19)
[2021-11-26] MEDS: TIMOLOL OD SCH ×2 (07:54→20:21)
[2021-11-26] MEDS: ASPIRIN 81 MG EC TAB PO SCH (07:54)
[2021-11-26] MEDS: BRIMONIDINE TARTRATE OD SCH ×2 (07:54→20:21)
[2021-11-26] MEDS: Vitamin B Complex/Vit C/Folic Acid PO SCH (07:54)
[2021-11-26] MEDS ORDERED: 0.9%NACL 1000ML 2,000 ML IV ONE (16:42)
[2021-11-26] MEDS ORDERED: [UNRECOGNIZED DRUG - REMARK] MISC STA (20:00)
[2021-11-26] MEDS: ATORVASTATIN 40 MG TABLET PO SCH (20:19)
[2021-11-26] MEDS: EPOETIN ALFA-EPBX (ESRD) 10,000 UNIT/ML VIAL SQ SCH (20:20)
[2021-11-26] MEDS: METOPROLOL TARTRATE 25 MG TAB PO SCH (20:20)
[2021-11-26] MEDS: LATANOPROST 2.5 ML DROPS OD SCH (20:21)
[2021-11-27 00:28] VITALS: BP 144/84
[2021-11-27] MEDS: TRAMADOL HCL 50 MG TABLET PO PRN (01:30)
[2021-11-27 03:56] VITALS: BP 142/70
[2021-11-27] MEDS: INSULIN HUMULIN R 100 UNIT/ML 3ML SQ SCH ×4 (06:20→21:00)
[2021-11-27] MEDS: ASPIRIN 81 MG EC TAB PO SCH (07:19)
[2021-11-27] MEDS: FAMOTIDINE 20MG TAB PO SCH (07:19)
[2021-11-27] MEDS: Vitamin B Complex/Vit C/Folic Acid PO SCH (07:19)
[2021-11-27] MEDS: ZOSYN 3.375GM +NS 50ML IV SCH ×2 (07:20→22:11)
[2021-11-27] MEDS: METOPROLOL TARTRATE 25 MG TAB PO SCH ×2 (07:20→22:12)
[2021-11-27] MEDS: TIMOLOL OD SCH ×2 (07:20→21:00)
[2021-11-27] MEDS: BRIMONIDINE TARTRATE OD SCH ×2 (07:20→21:00)
[2021-11-27] MEDS: MUPIROCIN OINTMENT 22 GM TUBE TP SCH ×2 (07:21→22:16)
[2021-11-27 07:47] VITALS: BP 157/79
[2021-11-27] MEDS: ENOXAPARIN SODIUM 30 MG/0.3 ML SQ SCH (08:23)
[2021-11-27 12:03] VITALS: BP 157/68
[2021-11-27] MEDS: ONDANSETRON 4MG INJ IV PRN (13:05)
[2021-11-27 15:55] VITALS: BP 148/75
[2021-11-27 19:18] VITALS: BP 162/82
[2021-11-27] MEDS: ATORVASTATIN 40 MG TABLET PO SCH (22:12)
[2021-11-27] MEDS: ACETAMINOPHEN 325 MG TAB PO PRN (22:15)
[2021-11-27] MEDS: LATANOPROST 2.5 ML DROPS OD SCH (22:16)
[2021-11-28] VITALS (22 sets, daily range): BP systolic 95–152; BP diastolic 44–83
[2021-11-28] MEDS: INSULIN HUMULIN R 100 UNIT/ML 3ML SQ SCH ×4 (07:30→21:00)
[2021-11-28] MEDS: MUPIROCIN OINTMENT 22 GM TUBE TP SCH ×2 (08:46→22:13)
[2021-11-28] MEDS: ZOSYN 3.375GM +NS 50ML IV SCH ×2 (08:46→22:06)
[2021-11-28] MEDS: FAMOTIDINE 20MG TAB PO SCH (08:47)
[2021-11-28] MEDS: METOPROLOL TARTRATE 25 MG TAB PO SCH ×2 (08:47→22:06)
[2021-11-28] MEDS: ASPIRIN 81 MG EC TAB PO SCH (08:47)
[2021-11-28] MEDS: Vitamin B Complex/Vit C/Folic Acid PO SCH (08:47)
[2021-11-28] MEDS: ENOXAPARIN SODIUM 30 MG/0.3 ML SQ SCH (08:47)
[2021-11-28] MEDS: BRIMONIDINE TARTRATE OD SCH ×2 (08:48→22:13)
[2021-11-28] MEDS: TIMOLOL OD SCH ×2 (08:48→22:13)
[2021-11-28] MEDS: ACETAMINOPHEN 325 MG TAB PO PRN ×2 (08:51→22:09)
[2021-11-28 20:14] LABS: INR 1.65 (0.85-1.15); PROTHROMBIN TIME 17.2 SEC (9.6-11.6)
[2021-11-28] MEDS ORDERED: 0.9%NACL 50ML 50 ML IV ONE (21:12)
[2021-11-28] MEDS: EPOETIN ALFA-EPBX (ESRD) 10,000 UNIT/ML VIAL SQ SCH (22:06)
[2021-11-28] MEDS: ATORVASTATIN 40 MG TABLET PO SCH (22:07)
[2021-11-28] MEDS: LATANOPROST 2.5 ML DROPS OD SCH (22:11)
[2021-11-29 03:55] VITALS: BP 150/78
[2021-11-29] MEDS: ACETAMINOPHEN 325 MG TAB PO PRN (05:59)
[2021-11-29] MEDS: INSULIN HUMULIN R 100 UNIT/ML 3ML SQ SCH ×2 (06:16→11:30)
[2021-11-29 07:00] VITALS: BP 110/46
[2021-11-29] MEDS: TIMOLOL OD SCH (07:30)
[2021-11-29] MEDS: BRIMONIDINE TARTRATE OD SCH (07:30)
[2021-11-29] MEDS: METOPROLOL TARTRATE 25 MG TAB PO SCH (09:46)
[2021-11-29] MEDS: FAMOTIDINE 20MG TAB PO SCH (09:46)
[2021-11-29] MEDS: ASPIRIN 81 MG EC TAB PO SCH (09:46)
[2021-11-29] MEDS: ZOSYN 3.375GM +NS 50ML IV SCH (09:46)
[2021-11-29] MEDS: Vitamin B Complex/Vit C/Folic Acid PO SCH (09:46)
[2021-11-29] MEDS: MUPIROCIN OINTMENT 22 GM TUBE TP SCH (09:47)
[2021-11-29] MEDS: ENOXAPARIN SODIUM 30 MG/0.3 ML SQ SCH (09:47)
[2021-11-29 11:00] VITALS: BP 92/49
== END 2021-11-29 12:18 | DRG 233 ==
LOC: EDH 04:13 → EDHIP 05:39 → 4CH 16:56 → 4BH 11-17 09:30 → 2CV 11-22 15:49 → 2CH 11-23 07:32 → 2DH 11-24 18:42
PROVIDERS: ADMIT Internal Medicine Infectious Disease; ATTEND Internal Medicine Infectious Disease
PROC: 5A1D70Z Performance of Urinary Filtration, Intermittent, Less than 6 Hours Per Day (ICD-10-PCS; 2021-11-16)
PROC: 4A023N7 Measurement of Cardiac Sampling and Pressure, Left Heart, Percutaneous Approach (ICD-10-PCS; principal; 2021-11-19)
PROC: B2111ZZ Fluoroscopy of Multiple Coronary Arteries using Low Osmolar Contrast (ICD-10-PCS; 2021-11-19)
PROC: B2151ZZ Fluoroscopy of Left Heart using Low Osmolar Contrast (ICD-10-PCS; 2021-11-19)
PROC: 5A1D70Z Performance of Urinary Filtration, Intermittent, Less than 6 Hours Per Day (ICD-10-PCS; 2021-11-19)
PROC: 0JBR0ZZ Excision of Left Foot Subcutaneous Tissue and Fascia, Open Approach (ICD-10-PCS; 2021-11-21)
PROC: 5A1D70Z Performance of Urinary Filtration, Intermittent, Less than 6 Hours Per Day (ICD-10-PCS; 2021-11-21)
PROC: 021109W Bypass Coronary Artery, Two Arteries from Aorta with Autologous Venous Tissue, Open Approach (ICD-10-PCS; 2021-11-22)
PROC: 06BQ4ZZ Excision of Left Saphenous Vein, Percutaneous Endoscopic Approach (ICD-10-PCS; 2021-11-22)
PROC: 02C00ZZ Extirpation of Matter from Coronary Artery, One Artery, Open Approach (ICD-10-PCS; 2021-11-22)
PROC: 02100Z9 Bypass Coronary Artery, One Artery from Left Internal Mammary, Open Approach (ICD-10-PCS; 2021-11-22 12:00)
PROC: 30233N1 Transfusion of Nonautologous Red Blood Cells into Peripheral Vein, Percutaneous Approach (ICD-10-PCS; 2021-11-23)
PROC: 5A1D70Z Performance of Urinary Filtration, Intermittent, Less than 6 Hours Per Day (ICD-10-PCS; 2021-11-23)
PROC: 5A1D70Z Performance of Urinary Filtration, Intermittent, Less than 6 Hours Per Day (ICD-10-PCS; 2021-11-26)
PROC: 5A1D70Z Performance of Urinary Filtration, Intermittent, Less than 6 Hours Per Day (ICD-10-PCS; 2021-11-28)
PROC: 05HY33Z Insertion of Infusion Device into Upper Vein, Percutaneous Approach (ICD-10-PCS; 2021-11-28)
PROC: 02HV33Z Insertion of Infusion Device into Superior Vena Cava, Percutaneous Approach (ICD-10-PCS; 2021-11-29)
DX: I21.4 Non-ST elevation (NSTEMI) myocardial infarction (principal); N18.6 End stage renal disease; J96.90 Respiratory failure, unspecified, unspecified whether with hypoxia or hypercapnia; I69.354 Hemiplegia and hemiparesis following cerebral infarction affecting left non-dominant side; L03.116 Cellulitis of left lower limb; I12.0 Hypertensive chronic kidney disease with stage 5 chronic kidney disease or end stage renal disease; E87.0 Hyperosmolality and hypernatremia; T87.44 Infection of amputation stump, left lower extremity; T87.81 Dehiscence of amputation stump; D63.1 Anemia in chronic kidney disease; E03.9 Hypothyroidism, unspecified; E11.621 Type 2 diabetes mellitus with foot ulcer; E87.6 Hypokalemia; E11.51 Type 2 diabetes mellitus with diabetic peripheral angiopathy without gangrene; E11.69 Type 2 diabetes mellitus with other specified complication; E11.22 Type 2 diabetes mellitus with diabetic chronic kidney disease; L97.529 Non-pressure chronic ulcer of other part of left foot with unspecified severity; E78.00 Pure hypercholesterolemia, unspecified; B95.2 Enterococcus as the cause of diseases classified elsewhere; B96.1 Klebsiella pneumoniae [K. pneumoniae] as the cause of diseases classified elsewhere; B96.4 Proteus (mirabilis) (morganii) as the cause of diseases classified elsewhere; B96.5 Pseudomonas (aeruginosa) (mallei) (pseudomallei) as the cause of diseases classified elsewhere; Y83.5 Amputation of limb(s) as the cause of abnormal reaction of the patient, or of later complication, without mention of misadventure at the time of the procedure; E78.5 Hyperlipidemia, unspecified; I34.0 Nonrheumatic mitral (valve) insufficiency; I70.202 Unspecified atherosclerosis of native arteries of extremities, left leg; E87.70 Fluid overload, unspecified; R53.81 Other malaise; I25.10 Atherosclerotic heart disease of native coronary artery without angina pectoris; Z99.2 Dependence on renal dialysis; I25.2 Old myocardial infarction; Z79.899 Other long term (current) drug therapy; Z89.511 Acquired absence of right leg below knee; Z83.3 Family history of diabetes mellitus; Z82.49 Family history of ischemic heart disease and other diseases of the circulatory system; Z20.822 Contact with and (suspected) exposure to COVID-19
CPT/HCPCS: 36415; 36600; 71045; 73630; 73718; 80048; 80053; 80061; 82435; 82803; 82947; 82948; 83036; 83605; 83735; 83880; 84100; 84132; 84145; 84295; 84484; 85018; 85025; 85027; 85347; 85378; 85610; 85730; 86704; 86706; 86850; 86900; 86901; 86923; 87040; 87070; 87076; 87077; 87186; 87340; 87635; 87804; 88304; 88311; 90935; 93005; 93306; 93356; 93458; 93880; 93970; 94002; 94003; 94010; 97039; 99156; 99157; A4344; A7048; C1894; C9803; G0378; J0171; J0583; J0610; J0690; J0692; J1644; J1650; J1815; J1885; J2001; J2250; J2405; J2440; J2543; J2704; J2720; J3010; J3480; J3490; J7030; J7040; P9016; P9045; Q9967

== ENCOUNTER 2022-03-18 12:20 | Inpatient (IN) | payer MEDICARE ==
[~2022-03-18] VITALS: Ht 157.5 cm; Wt 68.2 kg
[~2022-03-18 12:20] MED LIST changes: +ACET-2079 PO; -ACET1TAB25 PO
[2022-03-18 13:48] LABS: BASOPHILS % (AUTO) 1.3 % (0.0-5.0); EOSINOPHILS % (AUTO) 1.4 % (0.0-8.0); HEMATOCRIT 40.8 % (42-54); LYMPHOCYTES % (AUTO) 18.2 % (21.0-51.0); MEAN CORPUSCULAR HEMOGLOBIN 27.7 pg (27.0-33.0); MEAN CORPUSCULAR HGB CONC 31.1 g/dL (32.0-36.0); MEAN CORPUSCULAR VOLUME 88.9 fL (79-99); MONOCYTES % (AUTO) 8.3 % (3.0-13.0); NEUTROPHILS % (AUTO) 70.4 % (40.0-77.0); PLATELET COUNT (AUTO) 138 K/uL (130-400); RED BLOOD CELL COUNT(AUTO) 4.59 MIL/uL (4.50-6.20); RED CELL DISTRIBUTION WIDTH 14.4 % (11.0-15.5); WHITE BLOOD COUNT (AUTO) 8.5 K/uL (4.8-10.8)
[2022-03-18 13:55] LABS: CREATININE 2.9 mg/dL (0.5-1.5); POTASSIUM 4.7 mmol/L (3.5-5.1)
[2022-03-18 14:06] LABS: ALBUMIN 3.2 g/dL (3.5-5.0); BILIRUBIN,TOTAL 0.6 mg/dL (0.2-1.0); TOTAL PROTEIN, SERUM 7.1 g/dL (6.0-8.3)
[2022-03-18 15:26] LABS: APPEARANCE,URINE Clear (CLEAR); BILIRUBIN,URINE Negative (NEGATIVE); COLOR,URINE Yellow (YELLOW); GLUCOSE, URINE (UA) 250 mg/dL (NEGATIVE); KETONES,URINE Negative (NEGATIVE); LEUKOCYTE ESTERASE ,URINE Negative (NEGATIVE); NITRATE,URINE Negative (NEGATIVE); OCCULT BLOOD,URINE Negative (NEGATIVE); PH,URINE 8.5 (5.0-8.0); PROTEIN,URINE >=1000 mg/dL (NEGATIVE); UROBILINOGEN,URINE 0.2 mg/dL (0.2-1.0)
[2022-03-18] MEDS ORDERED: LABETALOL 20MG VIAL IV ONE (15:30)
[2022-03-18 15:33] LABS: AMPHET/METH SCREEN,URINE NEGATIVE (NEGATIVE); BARBITURATE SCREEN, URINE NEGATIVE (NEGATIVE); BENZODIAZEPINES SCREEN,URINE NEGATIVE (NEGATIVE); CANNABINOID SCREEN,URINE NEGATIVE (NEGATIVE); COCAINE SCREEN,URINE NEGATIVE (NEGATIVE); OPIATE SCREEN,URINE NEGATIVE (NEGATIVE); PHENCYCLIDINE SCREEN,URINE NEGATIVE (NEGATIVE)
[2022-03-18 15:34] LABS: WBC,URINE 0-1 /HPF (0-1)
[2022-03-18 15:35] LABS: BACTERIA,URINE Rare /HPF (None Seen); SQUAMOUS EPITHELIAL CELL,UR Rare /HPF (0-2)
[2022-03-18] MEDS ORDERED: ASPIRIN 325MG TAB PO ONE (16:00)
[2022-03-18] MEDS ORDERED: NITROGLYCERIN 1GM OINT 1 INCH/1GM TD ONE (16:00)
[2022-03-18] MEDS ORDERED: ONDANSETRON 4MG INJ IVP PRN (16:30)
[2022-03-18] MEDS ORDERED: DEXTROSE 50%-WATER 50 ML DISP.SYRIN IV PRN (16:30)
[2022-03-18] MEDS: INSULIN HUMULIN R 100 UNIT/ML 3ML SQ SCH ×2 (16:30→21:00)
[2022-03-18] MEDS ORDERED: GLUCAGON 1MG KIT 1 MG ML IM PRN (16:30)
[2022-03-18 22:40] VITALS: BP 159/77
[2022-03-19 04:39] VITALS: BP 147/78
[2022-03-19 06:40] LABS: HEMOGLOBIN A1C 6.6 % (4.0-6.0)
[2022-03-19] MEDS: INSULIN HUMULIN R 100 UNIT/ML 3ML SQ SCH ×4 (06:45→20:33)
[2022-03-19 06:47] LABS: BASOPHILS % (AUTO) 1.8 % (0.0-5.0); EOSINOPHILS % (AUTO) 3.5 % (0.0-8.0); HEMATOCRIT 39.1 % (42-54); LYMPHOCYTES % (AUTO) 20.9 % (21.0-51.0); MEAN CORPUSCULAR HEMOGLOBIN 28.1 pg (27.0-33.0); MEAN CORPUSCULAR VOLUME 85.2 fL (79-99); MONOCYTES % (AUTO) 9.2 % (3.0-13.0); NEUTROPHILS % (AUTO) 64.4 % (40.0-77.0); PLATELET COUNT (AUTO) 105 K/uL (130-400); RED BLOOD CELL COUNT(AUTO) 4.59 MIL/uL (4.50-6.20); RED CELL DISTRIBUTION WIDTH 14.2 % (11.0-15.5); WHITE BLOOD COUNT (AUTO) 6.1 K/uL (4.8-10.8)
[2022-03-19 07:15] LABS: ALBUMIN 2.9 g/dL (3.5-5.0); BILIRUBIN,TOTAL 0.7 mg/dL (0.2-1.0); CREATININE 3.8 mg/dL (0.5-1.5); MAGNESIUM 2.3 mg/dL (1.80-2.40); TOTAL PROTEIN, SERUM 6.7 g/dL (6.0-8.3)
[2022-03-19 08:00] VITALS: BP 164/83
[2022-03-19 08:23] LABS: POTASSIUM 5.4 mmol/L (3.5-5.1)
[2022-03-19 12:09] VITALS: BP 155/97
[2022-03-19] MEDS: KAYEXALATE 15GM/60ML PO SCH (12:36)
[2022-03-19 16:00] VITALS: BP 176/93
[2022-03-19 20:08] VITALS: BP 164/92
[2022-03-19] MEDS: ACETAMINOPHEN 325 MG TAB PO PRN (23:09)
[2022-03-20] VITALS (19 sets, daily range): BP systolic 152–198; BP diastolic 87–107
[2022-03-20] MEDS: INSULIN HUMULIN R 100 UNIT/ML 3ML SQ SCH ×4 (06:48→21:00)
[2022-03-20 07:41] LABS: HEMATOCRIT 43.4 % (42-54); MEAN CORPUSCULAR HEMOGLOBIN 26.8 pg (27.0-33.0); MEAN CORPUSCULAR HGB CONC 30.6 g/dL (32.0-36.0); MEAN CORPUSCULAR VOLUME 87.3 fL (79-99); PLATELET COUNT (AUTO) 171 K/uL (130-400); RED BLOOD CELL COUNT(AUTO) 4.97 MIL/uL (4.50-6.20); RED CELL DISTRIBUTION WIDTH 13.7 % (11.0-15.5); WHITE BLOOD COUNT (AUTO) 7.7 K/uL (4.8-10.8)
[2022-03-20 08:07] LABS: CREATININE 4.9 mg/dL (0.5-1.5); POTASSIUM 4.9 mmol/L (3.5-5.1)
[2022-03-20] MEDS: KAYEXALATE 15GM/60ML PO SCH (08:56)
[2022-03-20] MEDS ORDERED: REGADENOSON 0.4 MG/5 ML PF SYG IVP SCH (14:30)
[2022-03-20 16:12] LABS: HEPATITIS B SURFACE ANTIGEN Non-Reactive (Negative)
[2022-03-21 00:10] VITALS: BP 113/58
[2022-03-21 04:17] VITALS: BP 184/89
[2022-03-21] MEDS: INSULIN HUMULIN R 100 UNIT/ML 3ML SQ SCH ×4 (06:10→20:35)
[2022-03-21 07:29] LABS: BASOPHILS % (AUTO) 1.6 % (0.0-5.0); EOSINOPHILS % (AUTO) 0.6 % (0.0-8.0); HEMATOCRIT 45.6 % (42-54); MEAN CORPUSCULAR HEMOGLOBIN 27.8 pg (27.0-33.0); MEAN CORPUSCULAR HGB CONC 32.5 g/dL (32.0-36.0); MEAN CORPUSCULAR VOLUME 85.6 fL (79-99); MONOCYTES % (AUTO) 6.6 % (3.0-13.0); NEUTROPHILS % (AUTO) 77.9 % (40.0-77.0); PLATELET COUNT (AUTO) 166 K/uL (130-400); RED BLOOD CELL COUNT(AUTO) 5.33 MIL/uL (4.50-6.20); RED CELL DISTRIBUTION WIDTH 13.9 % (11.0-15.5); WHITE BLOOD COUNT (AUTO) 7.7 K/uL (4.8-10.8)
[2022-03-21 07:35] LABS: CARBON DIOXIDE 30 mmol/L (21-32); CHLORIDE 98 mmol/L (101-111); CREATININE 4.7 mg/dL (0.5-1.5); GLOMERULAR FILTR. RATE CALC 13 mL/min (>60); GLUCOSE,RANDOM 141 mg/dL (70-105); POTASSIUM 4.9 mmol/L (3.5-5.1); SODIUM SERUM 142 mmol/L (136-145); UREA NITROGEN, BLOOD 38 mg/dL (7-18)
[2022-03-21 07:42] LABS: ALANINE AMINOTRANSFERASE 22 U/L (12-78); ALBUMIN 3.6 g/dL (3.5-5.0); ASPARTATE AMINOTRANSFERASE 17 U/L (10-37); BILIRUBIN,TOTAL 0.5 mg/dL (0.2-1.0); TOTAL PROTEIN, SERUM 8.1 g/dL (6.0-8.3)
[2022-03-21 07:55] VITALS: BP 155/84
[2022-03-21 08:07] LABS: AMMONIA < 10 umol/L (11-32)
[2022-03-21] MEDS: KAYEXALATE 15GM/60ML PO SCH ×2 (08:34→12:15)
[2022-03-21 12:00] VITALS: BP 163/101
[2022-03-21 16:00] VITALS: BP 186/101
[2022-03-21 17:06] LABS: INR 1.09 (0.85-1.15); PROTHROMBIN TIME 11.8 SEC (9.6-11.6)
[2022-03-21] MEDS: BRIMONIDINE TARTRATE OD SCH (19:35)
[2022-03-21] MEDS: TIMOLOL OD SCH (19:35)
[2022-03-21] MEDS: METOPROLOL TARTRATE 25 MG TAB PO SCH (20:13)
[2022-03-21] MEDS: LATANOPROST 2.5 ML DROPS OP SCH (20:14)
[2022-03-21] MEDS: ACETAMINOPHEN 325 MG TAB PO PRN (20:14)
[2022-03-21 20:53] VITALS: BP 171/81
[2022-03-21] MEDS ORDERED: NON-FORMULARY MEDICATION 1 EACH (Latanoprost/Pf (Latanoprost 0.005% Eye Drop) 1 DROP) OP SCH (21:00)
[2022-03-22] VITALS (22 sets, daily range): BP systolic 100–198; BP diastolic 58–109
[2022-03-22] MEDS: INSULIN HUMULIN R 100 UNIT/ML 3ML SQ SCH ×4 (06:26→21:00)
[2022-03-22] MEDS: BRIMONIDINE TARTRATE OD SCH ×2 (09:00→21:00)
[2022-03-22] MEDS ORDERED: NON-FORMULARY MEDICATION 1 EACH (Pregabalin 50 MG) PO SCH (09:00)
[2022-03-22] MEDS: TIMOLOL OD SCH ×2 (09:00→21:00)
[2022-03-22] MEDS ORDERED: NON-FORMULARY MEDICATION 1 EACH (Vit B Cmplx 3/FA/Vit C/Biotin (Nephro-Vite Rx Tablet) 1 E PO SCH (09:00)
[2022-03-22] MEDS ORDERED: PREGABALIN 25 MG CAP PO SCH (09:00)
[2022-03-22] MEDS: Vitamin B Complex/Vit C/Folic Acid PO SCH (10:14)
[2022-03-22] MEDS: METOPROLOL TARTRATE 25 MG TAB PO SCH ×2 (10:14→21:08)
[2022-03-22] MEDS: LATANOPROST 2.5 ML DROPS OP SCH ×2 (10:16→21:09)
[2022-03-22] MEDS ORDERED: PHARMACY COMMUNICATION MISC SCH (16:00)
[2022-03-22] MEDS: PREGABALIN 25 MG CAP PO SCH (21:08)
[2022-03-23] VITALS (8 sets, daily range): BP systolic 77–120; BP diastolic 46–70
[2022-03-23] MEDS: ACETAMINOPHEN 325 MG TAB PO PRN ×2 (00:08→22:21)
[2022-03-23] MEDS: INSULIN HUMULIN R 100 UNIT/ML 3ML SQ SCH ×4 (06:09→21:00)
[2022-03-23] MEDS: KAYEXALATE 15GM/60ML PO SCH (08:56)
[2022-03-23] MEDS: TIMOLOL OD SCH ×2 (09:00→21:00)
[2022-03-23] MEDS: BRIMONIDINE TARTRATE OD SCH ×2 (09:00→21:00)
[2022-03-23] MEDS: LATANOPROST 2.5 ML DROPS OP SCH ×2 (09:33→22:15)
[2022-03-23] MEDS: Vitamin B Complex/Vit C/Folic Acid PO SCH (09:33)
[2022-03-23] MEDS: METOPROLOL TARTRATE 25 MG TAB PO SCH ×2 (09:33→22:15)
[2022-03-23] MEDS ORDERED: REGADENOSON 0.4 MG/5 ML PF SYG IVP SCH (11:30)
[2022-03-23] MEDS: PREGABALIN 25 MG CAP PO SCH (22:15)
[2022-03-24] VITALS (7 sets, daily range): BP systolic 110–154; BP diastolic 58–76
[2022-03-24 04:42] LABS: HEMATOCRIT 45.9 % (42-54); MEAN CORPUSCULAR HEMOGLOBIN 26.9 pg (27.0-33.0); MEAN CORPUSCULAR HGB CONC 31.8 g/dL (32.0-36.0); MEAN CORPUSCULAR VOLUME 84.7 fL (79-99); RED BLOOD CELL COUNT(AUTO) 5.42 MIL/uL (4.50-6.20); RED CELL DISTRIBUTION WIDTH 13.7 % (11.0-15.5); WHITE BLOOD COUNT (AUTO) 9.2 K/uL (4.8-10.8)
[2022-03-24 04:59] LABS: CREATININE 7.3 mg/dL (0.5-1.5); MAGNESIUM 2.4 mg/dL (1.80-2.40); POTASSIUM 4.4 mmol/L (3.5-5.1)
[2022-03-24] MEDS: INSULIN HUMULIN R 100 UNIT/ML 3ML SQ SCH ×4 (06:43→21:00)
[2022-03-24] MEDS ORDERED: ACETAMINOPHEN 325 MG TAB PO PRN (07:30)
[2022-03-24] MEDS: KAYEXALATE 15GM/60ML PO SCH (08:50)
[2022-03-24] MEDS: TIMOLOL OD SCH ×2 (09:00→20:36)
[2022-03-24] MEDS: BRIMONIDINE TARTRATE OD SCH ×2 (09:00→20:36)
[2022-03-24] MEDS: LATANOPROST 2.5 ML DROPS OP SCH ×2 (09:29→20:36)
[2022-03-24] MEDS: Vitamin B Complex/Vit C/Folic Acid PO SCH (09:29)
[2022-03-24] MEDS: METOPROLOL TARTRATE 25 MG TAB PO SCH ×2 (09:29→20:36)
[2022-03-24] MEDS: PREGABALIN 25 MG CAP PO SCH (20:36)
[2022-03-25] VITALS (21 sets, daily range): BP systolic 88–153; BP diastolic 59–85
[2022-03-25] MEDS: INSULIN HUMULIN R 100 UNIT/ML 3ML SQ SCH ×4 (07:30→20:09)
[2022-03-25] MEDS: Vitamin B Complex/Vit C/Folic Acid PO SCH (08:40)
[2022-03-25] MEDS: BRIMONIDINE TARTRATE OD SCH ×2 (08:40→21:00)
[2022-03-25] MEDS: TIMOLOL OD SCH ×2 (08:40→21:00)
[2022-03-25] MEDS: LATANOPROST 2.5 ML DROPS OP SCH ×2 (08:40→21:17)
[2022-03-25] MEDS: METOPROLOL TARTRATE 25 MG TAB PO SCH ×2 (08:40→21:15)
[2022-03-25] MEDS: KAYEXALATE 15GM/60ML PO SCH (11:36)
[2022-03-25 14:27] LABS: % IRON SATURATION 45.2 % (30-44)
[2022-03-25] MEDS: ACETAMINOPHEN 325 MG TAB PO PRN (17:50)
[2022-03-25] MEDS: PREGABALIN 25 MG CAP PO SCH (21:15)
[2022-03-26 02:31] LABS: HEMATOCRIT 44.3 % (42-54); MEAN CORPUSCULAR HEMOGLOBIN 26.9 pg (27.0-33.0); MEAN CORPUSCULAR HGB CONC 32.3 g/dL (32.0-36.0); MEAN CORPUSCULAR VOLUME 83.4 fL (79-99); RED BLOOD CELL COUNT(AUTO) 5.31 MIL/uL (4.50-6.20); RED CELL DISTRIBUTION WIDTH 13.6 % (11.0-15.5); WHITE BLOOD COUNT (AUTO) 8.6 K/uL (4.8-10.8)
[2022-03-26 02:39] LABS: CREATININE 6.1 mg/dL (0.5-1.5); POTASSIUM 3.8 mmol/L (3.5-5.1)
[2022-03-26 04:01] VITALS: BP 105/65
[2022-03-26] MEDS: INSULIN HUMULIN R 100 UNIT/ML 3ML SQ SCH ×4 (06:32→21:00)
[2022-03-26 07:30] VITALS: BP 112/58
[2022-03-26] MEDS: METOPROLOL TARTRATE 25 MG TAB PO SCH ×2 (08:17→21:57)
[2022-03-26] MEDS: Vitamin B Complex/Vit C/Folic Acid PO SCH (08:17)
[2022-03-26] MEDS: LATANOPROST 2.5 ML DROPS OP SCH ×2 (08:17→21:58)
[2022-03-26] MEDS: TIMOLOL OD SCH ×2 (08:24→21:58)
[2022-03-26] MEDS: BRIMONIDINE TARTRATE OD SCH ×2 (08:24→21:58)
[2022-03-26 11:25] VITALS: BP 130/69
[2022-03-26] MEDS: KAYEXALATE 15GM/60ML PO SCH (12:00)
[2022-03-26 15:35] VITALS: BP 83/58
[2022-03-26 20:01] VITALS: BP 115/70
[2022-03-26] MEDS: PREGABALIN 25 MG CAP PO SCH (21:57)
[2022-03-27] VITALS (23 sets, daily range): BP systolic 91–138; BP diastolic 49–75
[2022-03-27] MEDS: INSULIN HUMULIN R 100 UNIT/ML 3ML SQ SCH ×3 (06:35→21:00)
[2022-03-27] MEDS: TIMOLOL OD SCH ×2 (09:00→22:24)
[2022-03-27] MEDS: BRIMONIDINE TARTRATE OD SCH ×2 (09:00→22:24)
[2022-03-27] MEDS: METOPROLOL TARTRATE 25 MG TAB PO SCH ×2 (11:40→22:18)
[2022-03-27] MEDS: Vitamin B Complex/Vit C/Folic Acid PO SCH (11:40)
[2022-03-27] MEDS: LATANOPROST 2.5 ML DROPS OP SCH ×2 (11:41→22:24)
[2022-03-27] MEDS: KAYEXALATE 15GM/60ML PO SCH (12:00)
[2022-03-27] MEDS: PREGABALIN 25 MG CAP PO SCH (22:19)
[2022-03-28 04:38] VITALS: BP 101/52
[2022-03-28] MEDS: INSULIN HUMULIN R 100 UNIT/ML 3ML SQ SCH ×4 (06:39→20:35)
[2022-03-28] MEDS: Vitamin B Complex/Vit C/Folic Acid PO SCH (08:59)
[2022-03-28] MEDS: METOPROLOL TARTRATE 25 MG TAB PO SCH ×2 (08:59→20:46)
[2022-03-28] MEDS: TIMOLOL OD SCH ×2 (09:00→21:00)
[2022-03-28] MEDS: BRIMONIDINE TARTRATE OD SCH ×2 (09:00→21:00)
[2022-03-28] MEDS: LATANOPROST 2.5 ML DROPS OP SCH ×2 (09:03→21:00)
[2022-03-28 11:34] VITALS: BP 126/65
[2022-03-28] MEDS: KAYEXALATE 15GM/60ML PO SCH (11:43)
[2022-03-28] MEDS: LACTULOSE 20 GM/30 ML UDCUP PO PRN (11:50)
[2022-03-28] MEDS: ACETAMINOPHEN 325 MG TAB PO PRN (11:51)
[2022-03-28 17:18] VITALS: BP 122/56
[2022-03-28 20:00] VITALS: BP 116/60
[2022-03-28] MEDS: PREGABALIN 25 MG CAP PO SCH (20:48)
[2022-03-29] VITALS (18 sets, daily range): BP systolic 61–148; BP diastolic 38–83
[2022-03-29 04:32] LABS: HEMATOCRIT 44.2 % (42-54); MEAN CORPUSCULAR HEMOGLOBIN 26.8 pg (27.0-33.0); MEAN CORPUSCULAR HGB CONC 32.1 g/dL (32.0-36.0); MEAN CORPUSCULAR VOLUME 83.4 fL (79-99); RED BLOOD CELL COUNT(AUTO) 5.3 MIL/uL (4.50-6.20); RED CELL DISTRIBUTION WIDTH 13.9 % (11.0-15.5); WHITE BLOOD COUNT (AUTO) 9.7 K/uL (4.8-10.8)
[2022-03-29 05:30] LABS: ALBUMIN 3.2 g/dL (3.5-5.0); BILIRUBIN,TOTAL 0.4 mg/dL (0.2-1.0); MAGNESIUM 2.2 mg/dL (1.80-2.40); TOTAL PROTEIN, SERUM 7.4 g/dL (6.0-8.3)
[2022-03-29 05:32] LABS: CREATININE 8.2 mg/dL (0.5-1.5)
[2022-03-29] MEDS: INSULIN HUMULIN R 100 UNIT/ML 3ML SQ SCH ×4 (06:32→20:34)
[2022-03-29] MEDS: TIMOLOL OD SCH ×2 (09:00→21:00)
[2022-03-29] MEDS: BRIMONIDINE TARTRATE OD SCH ×2 (09:00→21:00)
[2022-03-29] MEDS: LATANOPROST 2.5 ML DROPS OP SCH ×2 (09:00→20:38)
[2022-03-29] MEDS: METOPROLOL TARTRATE 25 MG TAB PO SCH ×2 (09:45→20:38)
[2022-03-29] MEDS: Vitamin B Complex/Vit C/Folic Acid PO SCH (09:45)
[2022-03-29] MEDS: KAYEXALATE 15GM/60ML PO SCH (12:00)
[2022-03-29] MEDS: PREGABALIN 25 MG CAP PO SCH (20:38)
[2022-03-29] MEDS: ACETAMINOPHEN 325 MG TAB PO PRN (20:53)
[2022-03-30] VITALS (8 sets, daily range): BP systolic 72–132; BP diastolic 42–62
[2022-03-30] MEDS: INSULIN HUMULIN R 100 UNIT/ML 3ML SQ SCH ×4 (06:10→20:55)
[2022-03-30] MEDS ORDERED: 0.9% NACL 250ML 250 ML IV SCH (07:00)
[2022-03-30] MEDS ORDERED: BRIM5DRO4 OP (07:45)
[2022-03-30] MEDS: Vitamin B Complex/Vit C/Folic Acid PO SCH (08:17)
[2022-03-30] MEDS: LATANOPROST 2.5 ML DROPS OP SCH ×2 (08:19→20:43)
[2022-03-30] MEDS: BRIMONIDINE TARTRATE 0.2% 5 ML BOTTLE OP SCH ×2 (08:20→20:45)
[2022-03-30] MEDS ORDERED: MIDODRINE HCL 5 MG TABLET PO SCH (11:30)
[2022-03-30] MEDS: MIDODRINE HCL 5 MG TABLET PO SCH ×2 (14:57→20:42)
[2022-03-30] MEDS: PREGABALIN 25 MG CAP PO SCH (20:42)
[2022-03-31 03:45] VITALS: BP 88/54
[2022-03-31 04:46] LABS: HEMATOCRIT 40.6 % (42-54); MEAN CORPUSCULAR HEMOGLOBIN 27.7 pg (27.0-33.0); MEAN CORPUSCULAR VOLUME 83.9 fL (79-99); RED BLOOD CELL COUNT(AUTO) 4.84 MIL/uL (4.50-6.20); RED CELL DISTRIBUTION WIDTH 14.1 % (11.0-15.5); WHITE BLOOD COUNT (AUTO) 11.8 K/uL (4.8-10.8)
[2022-03-31 05:03] LABS: ALBUMIN 3.1 g/dL (3.5-5.0); BILIRUBIN,TOTAL 0.3 mg/dL (0.2-1.0); MAGNESIUM 2.2 mg/dL (1.80-2.40); POTASSIUM 3.6 mmol/L (3.5-5.1)
[2022-03-31 05:09] LABS: CREATININE 8.9 mg/dL (0.5-1.5)
[2022-03-31] MEDS: INSULIN HUMULIN R 100 UNIT/ML 3ML SQ SCH ×4 (06:40→21:08)
[2022-03-31 08:00] VITALS: BP 94/51
[2022-03-31] MEDS: MIDODRINE HCL 5 MG TABLET PO SCH ×3 (09:08→19:44)
[2022-03-31] MEDS: LATANOPROST 2.5 ML DROPS OP SCH ×2 (09:08→21:34)
[2022-03-31] MEDS: BRIMONIDINE TARTRATE 0.2% 5 ML BOTTLE OP SCH ×2 (09:08→21:34)
[2022-03-31] MEDS: Vitamin B Complex/Vit C/Folic Acid PO SCH (09:08)
[2022-03-31 11:55] VITALS: BP 102/57
[2022-03-31 16:00] VITALS: BP 139/79
[2022-03-31 19:52] VITALS: BP 168/74
[2022-03-31] MEDS: PREGABALIN 25 MG CAP PO SCH (21:33)
[2022-03-31] MEDS: LACTULOSE 20 GM/30 ML UDCUP PO PRN (23:54)
[2022-03-31 23:57] VITALS: BP 129/60
[2022-04-01] VITALS (17 sets, daily range): BP systolic 105–159; BP diastolic 42–89
[2022-04-01] MEDS: INSULIN HUMULIN R 100 UNIT/ML 3ML SQ SCH ×4 (06:43→21:00)
[2022-04-01] MEDS: LACTULOSE 20 GM/30 ML UDCUP PO PRN (08:31)
[2022-04-01] MEDS: Vitamin B Complex/Vit C/Folic Acid PO SCH (08:32)
[2022-04-01] MEDS: MIDODRINE HCL 5 MG TABLET PO SCH ×4 (08:32→21:00)
[2022-04-01] MEDS: BRIMONIDINE TARTRATE 0.2% 5 ML BOTTLE OP SCH ×2 (09:00→22:04)
[2022-04-01] MEDS: LATANOPROST 2.5 ML DROPS OP SCH ×2 (09:00→22:04)
[2022-04-01] MEDS: PREGABALIN 25 MG CAP PO SCH (21:58)
[2022-04-02] VITALS: BP 145/69
[2022-04-02] MEDS ORDERED: SIMETHICONE 80 MG TAB.CHEW ONE (02:03)
[2022-04-02] MEDS: LACTULOSE 20 GM/30 ML UDCUP PO PRN (02:04)
[2022-04-02] MEDS ORDERED: SIMETHICONE 80 MG TAB.CHEW PO ONE (02:30)
[2022-04-02 04:10] VITALS: BP 93/54
[2022-04-02] MEDS: INSULIN HUMULIN R 100 UNIT/ML 3ML SQ SCH ×2 (07:30→11:30)
[2022-04-02 08:00] VITALS: BP 158/58
[2022-04-02 10:22] LABS: HEMATOCRIT 38.9 % (42-54); MEAN CORPUSCULAR HEMOGLOBIN 27.4 pg (27.0-33.0); MEAN CORPUSCULAR HGB CONC 32.1 g/dL (32.0-36.0); MEAN CORPUSCULAR VOLUME 85.1 fL (79-99); RED BLOOD CELL COUNT(AUTO) 4.57 MIL/uL (4.50-6.20); RED CELL DISTRIBUTION WIDTH 14.2 % (11.0-15.5); WHITE BLOOD COUNT (AUTO) 8.5 K/uL (4.8-10.8)
[2022-04-02 10:34] LABS: CREATININE 7.7 mg/dL (0.5-1.5)
[2022-04-02] MEDS: MIDODRINE HCL 5 MG TABLET PO SCH ×2 (10:43→12:10)
[2022-04-02] MEDS: Vitamin B Complex/Vit C/Folic Acid PO SCH (10:43)
[2022-04-02] MEDS: LATANOPROST 2.5 ML DROPS OP SCH (10:44)
[2022-04-02] MEDS: BRIMONIDINE TARTRATE 0.2% 5 ML BOTTLE OP SCH (10:44)
[2022-04-02 12:00] VITALS: BP 133/78
== END 2022-04-02 16:55 | DRG 70 ==
LOC: EDH 12:20 → OBSVTOIN 16:07 → EDHIP 16:07 → 4BH 22:28 → 4CH 03-20 02:31
PROVIDERS: ADMIT Internal Medicine Infectious Disease; ATTEND Internal Medicine Infectious Disease
PROC: 5A1D70Z Performance of Urinary Filtration, Intermittent, Less than 6 Hours Per Day (ICD-10-PCS; 2022-03-20)
PROC: 5A1D70Z Performance of Urinary Filtration, Intermittent, Less than 6 Hours Per Day (ICD-10-PCS; 2022-03-22)
PROC: 4A02XM4 Measurement of Cardiac Total Activity, External Approach (ICD-10-PCS; principal; 2022-03-23)
PROC: 3E073KZ Introduction of Other Diagnostic Substance into Coronary Artery, Percutaneous Approach (ICD-10-PCS; 2022-03-23)
PROC: 5A1D70Z Performance of Urinary Filtration, Intermittent, Less than 6 Hours Per Day (ICD-10-PCS; 2022-03-25)
PROC: 5A1D70Z Performance of Urinary Filtration, Intermittent, Less than 6 Hours Per Day (ICD-10-PCS; 2022-03-27)
PROC: 5A1D70Z Performance of Urinary Filtration, Intermittent, Less than 6 Hours Per Day (ICD-10-PCS; 2022-03-29)
PROC: 5A1D70Z Performance of Urinary Filtration, Intermittent, Less than 6 Hours Per Day (ICD-10-PCS; 2022-04-01)
DX: G93.41 Metabolic encephalopathy (principal); I21.4 Non-ST elevation (NSTEMI) myocardial infarction; N18.6 End stage renal disease; I12.0 Hypertensive chronic kidney disease with stage 5 chronic kidney disease or end stage renal disease; N39.0 Urinary tract infection, site not specified; I69.354 Hemiplegia and hemiparesis following cerebral infarction affecting left non-dominant side; G93.40 Encephalopathy, unspecified; E11.22 Type 2 diabetes mellitus with diabetic chronic kidney disease; I16.0 Hypertensive urgency; D63.1 Anemia in chronic kidney disease; E11.51 Type 2 diabetes mellitus with diabetic peripheral angiopathy without gangrene; E87.5 Hyperkalemia; I25.10 Atherosclerotic heart disease of native coronary artery without angina pectoris; L97.529 Non-pressure chronic ulcer of other part of left foot with unspecified severity; I45.10 Unspecified right bundle-branch block; E03.9 Hypothyroidism, unspecified; E66.9 Obesity, unspecified; E78.00 Pure hypercholesterolemia, unspecified; E78.5 Hyperlipidemia, unspecified; Z99.2 Dependence on renal dialysis; Z89.511 Acquired absence of right leg below knee; Z74.01 Bed confinement status; Z82.49 Family history of ischemic heart disease and other diseases of the circulatory system; Z83.3 Family history of diabetes mellitus; Z95.1 Presence of aortocoronary bypass graft; Z68.27 Body mass index [BMI] 27.0-27.9, adult; I95.9 Hypotension, unspecified; R53.81 Other malaise
CPT/HCPCS: 36415; 70450; 71045; 78452; 80048; 80053; 80305; 81001; 82140; 82306; 82550; 82948; 83036; 83540; 83550; 83735; 83874; 83880; 84484; 85025; 85027; 85610; 86704; 86706; 87340; 90935; 93005; 93017; 93306; 93356; 96374; 97039; A9500; C1894; G0378; J1815; J2785; J3490; J7050; J7070